=== PATIENT | female | born 1965 | race African-American/Black ===

== ENCOUNTER 2017-08-14 22:05 | Emergency (ER) | payer OTHER ==
[~2017-08-14] VITALS: Ht 167.6 cm; Wt 68.1 kg
[~2017-08-14 22:05] MED LIST: ADVAIR HF1 IN; AMOXICILLIN500 MG PO; BENADRYL 50MG C50 MG OR; BENTYL10 MG OR; BUPROPION150 MG PO; DEPO-MEDROL80 MG/ML IM; DILTIAZEM60 M1 OR; DIOVAN HC2 PO; FLEXERIL PO; GLUCOPHAGE500 MG OR; HYDROCHLOROT12.5 MG OR; HYZAAR1 TAB PO; LISINOP/HCTZ1 TA1 OR; LORTAB 5 OR; METFORMIN500 MG PO; METOPROLOL25 M1 OR; NAPROSYN500 MG OR; NAPROSYN500 MG PO; NASONEX50 MCG/AC; NORVASC10 M1 PO; NOVOLIN 70/30 SC; PREVACID30 M1 OR; PRILOSEC OTC20 MG OR; PROTONIX40 M2 PO; ULTRAM50 M1 PO; ULTRAM50 MG OR; VALSARTAN160 MG; VENTOLIN HFA IN; ZESTRIL20 MG OR; ZOFRAN ODT4 MG OR; ZOFRAN ODT8 MG SL
[2017-08-14] MEDS ORDERED: NAPROSYN500 MG PO (23:51)
--- NOTE | 2017-08-14 23:56 | NUR ---
breathing treatment given. breathing tech. for good deposition to the lungs.
[2017-08-15 00:10] VITALS: BP 148/94
== END 2017-08-15 00:12 | disposition home or self-care (01) | DRG 605 ==
LOC: ED 22:05
DX: S80.01XA Contusion of right knee, initial encounter (principal); I10 Essential (primary) hypertension; S83.91XA Sprain of unspecified site of right knee, initial encounter; E11.9 Type 2 diabetes mellitus without complications; J45.909 Unspecified asthma, uncomplicated; E03.9 Hypothyroidism, unspecified; W22.8XXA Striking against or struck by other objects, initial encounter

== ENCOUNTER 2017-09-20 14:01 | Emergency (ER) | payer OTHER ==
[~2017-09-20] VITALS: Ht 167.6 cm; Wt 69.1 kg
[2017-09-20 14:55] LABS: INFLUENZA A NONE DETECTED (NONE DETECT); INFLUENZA B NONE DETECTED (NONE DETECT)
[2017-09-20 15:28] LABS: HEMATOCRIT 34.3 % (37.0-47.0); HEMOGLOBIN 10.9 g/dl (12.0-16.0); IMMATURE GRANULOCYTES 0.4 % (0.0-1.0); MEAN CELL VOLUME 81.5 fL CALC (80.0-100.0); MEAN CORPUSCULAR HGB 25.9 pG CALC (26.0-32.0); MEAN CORPUSCULAR HGB CONC 31.8 g/L CALC (32.0-36.0); NEUT# 7.53 thou/uL (2.00-7.15); RED BLOOD COUNT 4.21 mill/uL (4.20-5.60); RED CELL DISTRI WIDTH 16.6 % (11.5-15.5)
[2017-09-20 15:34] LABS: ALBUMIN 4.3 g/dL (3.2-5.0); ALKALINE PHOSPHATASE 90 u/l (38-126); ANION GAP 13 (6-22 (CALC)); BUN 19 mg/dL (7-17); BUN/CREATININE RATIO 20 (12-20 (CALC)); CALCIUM 9.5 mg/dL (8.4-10.2); CARBON DIOXIDE 25 mmol/l (22-30); CHLORIDE 107 mmol/l (95-108); GFR 58 ML/MIN (>=60 (CALC)); GFR FOR AFR.AMER. > 60 ML/MIN (>=60 (CALC)); GLUCOSE 81 mg/dL (65-105); POTASSIUM 3.9 mmol/l (3.5-5.1); SGOT/AST 36 u/l (14-36); SGPT/ALT 31 u/l (9-52); SODIUM 142 mmol/l (137-146); TOTAL PROTEIN 7.9 g/dL (6.3-8.2)
[2017-09-20] MEDS ORDERED: ROBITUSSIN AC10 ML PO (16:44)
[2017-09-20] MEDS ORDERED: CEPHALEXIN500 MG PO (16:44)
[2017-09-20 16:47] VITALS: BP 176/84
== END 2017-09-20 17:15 | disposition home or self-care (01) | DRG 153 ==
LOC: ED 14:01
PROVIDERS: Emergency Medicine
DX: J06.9 Acute upper respiratory infection, unspecified (principal); I10 Essential (primary) hypertension; E11.9 Type 2 diabetes mellitus without complications; J45.909 Unspecified asthma, uncomplicated; E03.9 Hypothyroidism, unspecified; R05 Cough; R06.02 Shortness of breath; J02.9 Acute pharyngitis, unspecified

== ENCOUNTER 2017-10-31 00:22 | Inpatient (IN) | payer OTHER ==
[2017-10-31] VITALS (10 sets, daily range): BP systolic 138–198; BP diastolic 86–122
[~2017-10-31] VITALS: Ht 162.6 cm; Wt 60.0 kg
[~2017-10-31 00:22] MED LIST changes: +CEPHALEXIN500 MG PO; +ROBITUSSIN AC10 ML PO
[2017-10-31 01:11] LABS: HEMATOCRIT 33.7 % (37.0-47.0); HEMOGLOBIN 10.9 g/dl (12.0-16.0); IMMATURE GRANULOCYTES 0.6 % (0.0-1.0); MEAN CORPUSCULAR HGB 25.2 pG CALC (26.0-32.0); MEAN CORPUSCULAR HGB CONC 32.3 g/L CALC (32.0-36.0); NEUT# 3.79 thou/uL (2.00-7.15); RED BLOOD COUNT 4.32 mill/uL (4.20-5.60); RED CELL DISTRI WIDTH 16.8 % (11.5-15.5)
[2017-10-31 01:23] LABS: ALBUMIN 3.7 g/dL (3.2-5.0); ALKALINE PHOSPHATASE 95 u/l (38-126); ANION GAP 15 (6-22 (CALC)); BILIRUBIN, TOTAL 0.6 mg/dL (0.0-1.4); BUN 17 mg/dL (7-17); BUN/CREATININE RATIO 14 (12-20 (CALC)); CALCIUM 9.4 mg/dL (8.4-10.2); CARBON DIOXIDE 25 mmol/l (22-30); CHLORIDE 110 mmol/l (95-108); CREATININE 1.2 mg/dL (0.5-1.0); GFR 47 ML/MIN (>=60 (CALC)); GFR FOR AFR.AMER. 57 ML/MIN (>=60 (CALC)); GLUCOSE 114 mg/dL (65-105); POTASSIUM 4.2 mmol/l (3.5-5.1); SGOT/AST 47 u/l (14-36); SGPT/ALT 45 u/l (9-52); SODIUM 145 mmol/l (137-146); TOTAL PROTEIN 6.6 g/dL (6.3-8.2)
[2017-10-31 01:31] LABS: ACT PARTIAL THROMBO TIME 27.1 SECONDS (20.0-32.5); PROTHROMBIN TIME 11.5 SECONDS (9.0-12.5)
[2017-10-31 01:35] LABS: MYOGLOBIN 23 ng/mL (0 - 62)
[2017-10-31 02:14] LABS: URINE BILIRUBIN - DIPSTICK NEGATIVE (NEGATIVE); URINE BLOOD DIPSTICK NEGATIVE (NEGATIVE); URINE CLARITY CLEAR; URINE COLOR YELLOW; URINE GLUCOSE - DIPSTICK NEGATIVE (NEGATIVE); URINE KETONE NEGATIVE (NEGATIVE); URINE LEUK ESTERASE NEGATIVE (NEGATIVE); URINE NITRITE - DIPSTICK NEGATIVE (Negative); URINE PH 6.5 (4.5-8.0); URINE PROTEIN - DIPSTICK NEGATIVE (NEG-TRACE); URINE SPECIFIC GRAVITY <=1.005; URINE UROBILINOGEN - DIPSTICK 0.2 E.U./dL (0.2)
[2017-10-31 05:50] LABS: CHOLESTEROL HDL RATIO 2.6 (<4.4 (CALC))
[2017-10-31 13:11] LABS: BARBITURATES NEGATIVE (NEGATIVE); COCAINE POSITIVE (NEGATIVE); METHADONE NEGATIVE (NEGATIVE); OXCYCODONE NEGATIVE (NEGATIVE); TETRAHYDROCANNABIONOL POSITIVE (NEGATIVE); TRICYLIC ANTIDEPRESSANTS NEGATIVE (NEGATIVE)
[2017-11-01 05:00] VITALS: BP 174/110
[2017-11-01 05:15] LABS: ANION GAP 14 (6-22 (CALC)); BUN 12 mg/dL (7-17); BUN/CREATININE RATIO 10 (12-20 (CALC)); CALCIUM 9.6 mg/dL (8.4-10.2); CARBON DIOXIDE 23 mmol/l (22-30); CHLORIDE 108 mmol/l (95-108); CREATININE 1.1 mg/dL (0.5-1.0); GFR 52 ML/MIN (>=60 (CALC)); GFR FOR AFR.AMER. > 60 ML/MIN (>=60 (CALC)); GLUCOSE 114 mg/dL (65-105); MAGNESIUM 1.7 mg/dL (1.6-2.3); POTASSIUM 3.6 mmol/l (3.5-5.1); SODIUM 141 mmol/l (137-146)
[2017-11-01 07:10] VITALS: BP 150/88
[2017-11-01 11:10] VITALS: BP 143/82
[2017-11-01 16:34] VITALS: BP 146/78
[2017-11-02 00:05] VITALS: BP 160/90
[2017-11-02 05:20] LABS: HEMATOCRIT 34.6 % (37.0-47.0); HEMOGLOBIN 11.4 g/dl (12.0-16.0); IMMATURE GRANULOCYTES 0.5 % (0.0-1.0); MEAN CELL VOLUME 75.5 fL CALC (80.0-100.0); MEAN CORPUSCULAR HGB 24.9 pG CALC (26.0-32.0); MEAN CORPUSCULAR HGB CONC 32.9 g/L CALC (32.0-36.0); NEUT# 7.79 thou/uL (2.00-7.15); RED BLOOD COUNT 4.58 mill/uL (4.20-5.60); RED CELL DISTRI WIDTH 16.3 % (11.5-15.5)
[2017-11-02 05:37] LABS: ANION GAP 20 (6-22 (CALC)); BUN 11 mg/dL (7-17); BUN/CREATININE RATIO 10 (12-20 (CALC)); CALCIUM 9.7 mg/dL (8.4-10.2); CARBON DIOXIDE 23 mmol/l (22-30); CHLORIDE 102 mmol/l (95-108); CREATININE 1.1 mg/dL (0.5-1.0); GFR 52 ML/MIN (>=60 (CALC)); GFR FOR AFR.AMER. > 60 ML/MIN (>=60 (CALC)); GLUCOSE 162 mg/dL (65-105); MAGNESIUM 1.5 mg/dL (1.6-2.3); POTASSIUM 3.9 mmol/l (3.5-5.1); SODIUM 141 mmol/l (137-146)
[2017-11-02 05:45] VITALS: BP 114/67
[2017-11-02 07:37] VITALS: BP 140/86
[2017-11-02 11:21] VITALS: BP 126/76
[2017-11-02 15:37] VITALS: BP 123/74
[2017-11-02 19:00] VITALS: BP 142/84
[2017-11-03 00:16] VITALS: BP 130/67
[2017-11-03 04:00] VITALS: BP 138/98
[2017-11-03 06:18] LABS: HEMATOCRIT 37.4 % (37.0-47.0); IMMATURE GRANULOCYTES 0.5 % (0.0-1.0); MEAN CELL VOLUME 76.3 fL CALC (80.0-100.0); MEAN CORPUSCULAR HGB 24.5 pG CALC (26.0-32.0); MEAN CORPUSCULAR HGB CONC 32.1 g/L CALC (32.0-36.0); RED BLOOD COUNT 4.9 mill/uL (4.20-5.60); RED CELL DISTRI WIDTH 16.4 % (11.5-15.5)
[2017-11-03 06:31] LABS: CALCIUM 10.2 mg/dL (8.4-10.2); CREATININE 1.2 mg/dL (0.5-1.0); MAGNESIUM 2.1 mg/dL (1.6-2.3); POTASSIUM 4.5 mmol/l (3.5-5.1)
[2017-11-03] MEDS ORDERED: ISOSORB MONO60 M1 PO (08:17)
[2017-11-03] MEDS ORDERED: DILTIAZEM CD300 MG PO (08:17)
[2017-11-03] MEDS ORDERED: CARAFATE1 GM PO (08:18)
[2017-11-03] MEDS ORDERED: ALDACTONE25 MG PO (08:18)
[2017-11-03] MEDS ORDERED: ELIQUIS5 MG PO (08:19)
[2017-11-03] MEDS ORDERED: GLUCOPHAGE500 MG PO (08:19)
[2017-11-03] MEDS ORDERED: FERROUS SULF325 M2 PO (08:22)
[2017-11-03] MEDS ORDERED: AUGMENTIN875TAB PO (08:30)
[2017-11-03 08:50] VITALS: BP 151/82
[2017-11-03 08:59] VITALS: BP 151/82
== END 2017-11-03 11:00 | disposition home or self-care (01) | DRG 308 ==
LOC: ED 00:22 → ED-I 04:10 → ED 04:26 → MS2 04:27
PROVIDERS: Emergency Medicine; Nurse Practitioner Family; ADMIT Internal Medicine; ATTEND Internal Medicine
DX: I48.91 Unspecified atrial fibrillation (principal); J18.9 Pneumonia, unspecified organism; D50.9 Iron deficiency anemia, unspecified; E03.9 Hypothyroidism, unspecified; E11.9 Type 2 diabetes mellitus without complications; E86.0 Dehydration; I10 Essential (primary) hypertension; F12.10 Cannabis abuse, uncomplicated; K27.9 Peptic ulcer, site unspecified, unspecified as acute or chronic, without hemorrhage or perforation; J45.909 Unspecified asthma, uncomplicated; M15.9 Polyosteoarthritis, unspecified; F14.10 Cocaine abuse, uncomplicated; I48.92 Unspecified atrial flutter; J32.9 Chronic sinusitis, unspecified; T39.395A Adverse effect of other nonsteroidal anti-inflammatory drugs [NSAID], initial encounter; Z79.84 Long term (current) use of oral hypoglycemic drugs
CPT/HCPCS: J1650; S0164

== ENCOUNTER 2018-01-05 01:25 | Emergency (ER) | payer OTHER ==
[~2018-01-05] VITALS: Ht 162.6 cm; Wt 66.8 kg
[~2018-01-05 01:25] MED LIST changes: +ALDACTONE25 MG PO; +AUGMENTIN875TAB PO; +CARAFATE1 GM PO; +DILTIAZEM CD300 MG PO; +ELIQUIS5 MG PO; +FERROUS SULF325 M2 PO; +GLUCOPHAGE500 MG PO; +ISOSORB MONO60 M1 PO
[2018-01-05 02:33] LABS: HEMATOCRIT 35.6 % (37.0-47.0); HEMOGLOBIN 11.2 g/dl (12.0-16.0); IMMATURE GRANULOCYTES 0.3 % (0.0-1.0); MEAN CELL VOLUME 76.1 fL CALC (80.0-100.0); MEAN CORPUSCULAR HGB 23.9 pG CALC (26.0-32.0); MEAN CORPUSCULAR HGB CONC 31.5 g/L CALC (32.0-36.0); NEUT# 3.51 thou/uL (2.00-7.15); RED BLOOD COUNT 4.68 mill/uL (4.20-5.60); RED CELL DISTRI WIDTH 19.6 % (11.5-15.5)
[2018-01-05 02:53] LABS: ALBUMIN 4.1 g/dL (3.2-5.0); BILIRUBIN, TOTAL 0.5 mg/dL (0.0-1.4); CREATININE 1.3 mg/dL (0.5-1.0); POTASSIUM 3.9 mmol/l (3.5-5.1)
[2018-01-05 02:54] LABS: INFLUENZA A NONE DETECTED (NONE DETECT); INFLUENZA B NONE DETECTED (NONE DETECT)
[2018-01-05] MEDS ORDERED: MEDDOSEPAK PO (02:58)
[2018-01-05] MEDS ORDERED: ROBITUSSIN AC10 ML PO (02:58)
[2018-01-05] MEDS ORDERED: CEPHALEXIN500 MG PO (02:58)
[2018-01-05 03:19] VITALS: BP 148/95
== END 2018-01-05 03:32 | disposition home or self-care (01) | DRG 203 ==
LOC: ED 01:25
PROVIDERS: Emergency Medicine
DX: J45.909 Unspecified asthma, uncomplicated (principal); I12.9 Hypertensive chronic kidney disease with stage 1 through stage 4 chronic kidney disease, or unspecified chronic kidney disease; N18.9 Chronic kidney disease, unspecified; I25.10 Atherosclerotic heart disease of native coronary artery without angina pectoris; R05 Cough; R50.9 Fever, unspecified; J02.9 Acute pharyngitis, unspecified

== ENCOUNTER 2018-01-06 01:08 | Inpatient (IN) | payer OTHER ==
[~2018-01-06] VITALS: Ht 162.6 cm; Wt 57.8 kg
[2018-01-06] VITALS (16 sets, daily range): BP systolic 131–184; BP diastolic 76–110
[~2018-01-06 01:08] MED LIST changes: +MEDDOSEPAK PO
--- NOTE | 2018-01-06 01:08 | NUR ---
RECEIVED PT VIA EMS.
--- NOTE | 2018-01-06 01:30 | NUR ---
PATIENT MEDICATED FOR NAUSEA AND ELEVATED HR AND BP. WILL MONITRO FOR EFFECT.
[2018-01-06 01:36] LABS: HEMATOCRIT 36.9 % (37.0-47.0); HEMOGLOBIN 11.7 g/dl (12.0-16.0); IMMATURE GRANULOCYTES 0.6 % (0.0-1.0); MEAN CELL VOLUME 75.2 fL CALC (80.0-100.0); MEAN CORPUSCULAR HGB 23.8 pG CALC (26.0-32.0); MEAN CORPUSCULAR HGB CONC 31.7 g/L CALC (32.0-36.0); NEUT# 7.21 thou/uL (2.00-7.15); RED BLOOD COUNT 4.91 mill/uL (4.20-5.60); RED CELL DISTRI WIDTH 19.9 % (11.5-15.5)
--- NOTE | 2018-01-06 01:41 | NUR ---
PATIENT UP TO BEDSIDE COMMODE FOR URINE SAMPLE.
[2018-01-06 01:51] LABS: ALBUMIN 4.7 g/dL (3.2-5.0); ALKALINE PHOSPHATASE 121 u/l (38-126); ANION GAP 17 (6-22 (CALC)); BILIRUBIN, TOTAL 0.9 mg/dL (0.0-1.4); BUN 14 mg/dL (7-17); BUN/CREATININE RATIO 14 (12-20 (CALC)); CARBON DIOXIDE 24 mmol/l (22-30); CHLORIDE 110 mmol/l (95-108); GFR 58 ML/MIN (>=60 (CALC)); GFR FOR AFR.AMER. > 60 ML/MIN (>=60 (CALC)); POTASSIUM 3.7 mmol/l (3.5-5.1); SGOT/AST 85 u/l (14-36); SGPT/ALT 80 u/l (9-52); SODIUM 147 mmol/l (137-146); TOTAL PROTEIN 7.8 g/dL (6.3-8.2)
[2018-01-06 02:01] LABS: URINE BILIRUBIN - DIPSTICK NEGATIVE (NEGATIVE); URINE BLOOD DIPSTICK TRACE-LYSED (NEGATIVE); URINE COLOR YELLOW; URINE GLUCOSE - DIPSTICK 100 mg/dL (NEGATIVE); URINE KETONE NEGATIVE (NEGATIVE); URINE LEUK ESTERASE NEGATIVE (NEGATIVE); URINE NITRITE - DIPSTICK NEGATIVE (Negative); URINE PH 6.5 (4.5-8.0); URINE PROTEIN - DIPSTICK NEGATIVE (NEG-TRACE); URINE UROBILINOGEN - DIPSTICK 0.2 E.U./dL (0.2)
[2018-01-06 02:02] LABS: MYOGLOBIN 54 ng/mL (0 - 62)
[2018-01-06 02:04] LABS: URINE CLARITY CLEAR
--- NOTE | 2018-01-06 02:30 | NUR ---
UP TO COMMODE TO VOID. TOLERATED WELL WITHOUT DIZZINESS OR LIGHTHEADEDNESS. O2 APPLIED PER MD ORDER. ANTIBIOTIC INFUSING.
--- NOTE | 2018-01-06 02:42 | NUR ---
BREATHING TREATMENT GIVEN. BREATHING TECH. FOR GOOD DEPOSITION TO THE LUNGS AND IN CASE OF SOB.
--- NOTE | 2018-01-06 03:15 | NUR ---
PATIENT RESTING ON STRETCHER. AWARE OF PLANS TO ADMIT. AWAITING ORDERS AND PLAN OF CARE.
--- NOTE | 2018-01-06 04:13 | NUR ---
REPORT CALLED TO Dequan FAJARDO LPN
--- NOTE | 2018-01-06 04:25 | NUR ---
TRANSFERRED TO ICU ROOM 7 VIA STRETCHER WITH CONTINUOUS MONITORING AND OXYGEN AT 2 L/MIN. ALL BELONGINGS WITH PATIENT, INCLUDING KEYS AND CELL PHONE.
--- NOTE | 2018-01-06 07:05 | NUR ---
PT LAYING IN BED RESTING WITH EYES CLOSED, AROUSES EASILY TO VERBAL STIMULI, PT IS A & O X3, PERRL, HR 112, RESP. 20, BP 133/75, O2 97% ON RA, WHEEZES AND COARSE THROUGHOUT LUNGS, 20G RFA WITH NS AND CARDIZEM INFUSING AT PRESCRIBED RATE, STRONG RADIAL AND PEDAL PULSES, AM ASSESSMENT COMPLETE, SEE INTERVENTIONS, SAFETY MEASURES INFORCED, CALL CESAR WITHIN REACH
--- NOTE | 2018-01-06 07:35 | NUR ---
SETUP ASSISTANCE PROVIDE WITH AM MEAL
--- NOTE | 2018-01-06 08:05 | NUR ---
PT ASSISTED WITH MINIMAL ASSISTANCE TO THE BSC AND BACK TO BED, PT AMBULATED WITH A SLOW STEADY GAIT, CALL CESAR WITHIN REACH
--- NOTE | 2018-01-06 08:35 | NUR ---
PT LAYING IN BED WATCHING TV, VERBALIZES NO COMPLAINTS, REMINDED TO CALL FOR ASSISTANCE, CALL CESAR WITHIN REACH
--- NOTE | 2018-01-06 09:47 | NUR ---
DR CHANG AT BEDSIDE DISCUSSING PLAN OF CARE
--- NOTE | 2018-01-06 10:26 | NUR ---
PT PROVIDED WITH SNACKS PER PT REQUEST, PT SITTING UP IN BED WATCHING TV, NO S/S OF DISTRESS, CALL CESAR WITHIN REACH
--- NOTE | 2018-01-06 11:30 | NUR ---
SETUP ASSISTANCE PROVIDED WITH LUNCH
--- NOTE | 2018-01-06 12:05 | NUR ---
PT SITTING UP IN BED WATCHING TV, VERBALIZES NO COMPLAINTS, REMINDED TO CALL FOR ASSISTANCE, CALL CESAR WITHIN REACH
--- NOTE | 2018-01-06 13:10 | NUR ---
PT ASSISTED TO THE BSC AND BACK TO BED, PT AMBULATED WITH A STRONG STEADY GAIT, PT TOLERATED WELL, CALL CESAR WITHIN REACH
--- NOTE | 2018-01-06 14:38 | NUR ---
PT SITTING IN BED TALKING ON THE PHONE, NO S/S OF DISTRESS, REMINDED TO CALL FOR ASSISTANCE, CALL CESAR WITHIN REACH
--- NOTE | 2018-01-06 15:26 | NUR ---
CASE MANAGEMENT AT BEDSIDE DISCUSSING DISCHARGE PLANNING
--- NOTE | 2018-01-06 16:05 | NUR ---
PT LAYING IN BED WATCHING TV, PT VERBALIZES NO COMPLAINTS, CARDIZEM DRIP TITRATED, WILL CONTINUE TO MONITOR CLOSELY, CALL CESAR WITHIN REACH
--- NOTE | 2018-01-06 17:35 | NUR ---
SETUP ASSISTANCE PROVIDED WITH PM MEAL
--- NOTE | 2018-01-06 19:00 | NUR ---
awake. denies resp diff. o2 cont per nc. coarse breath sounds bilat. monitoring engineer shows afib/fl. po fluids taken well. voids per bsc. fall precautions cont.
--- NOTE | 2018-01-06 22:00 | NUR ---
eyes closed. no resp distress. o2 cont. management rep shows afib/fl.
[2018-01-07] VITALS (11 sets, daily range): BP systolic 119–160; BP diastolic 67–110
--- NOTE | 2018-01-07 00:01 | NUR ---
eyes closed. no apparent distress. o2 cont.
--- NOTE | 2018-01-07 00:15 | NUR ---
lab here. blood drawn.
--- NOTE | 2018-01-07 02:00 | NUR ---
resting quietly. resps even & unlabored. no apparent distress.
--- NOTE | 2018-01-07 04:00 | NUR ---
lab here. blood drawn.
[2018-01-07 05:00] LABS: ANION GAP 17 (6-22 (CALC)); BUN 17 mg/dL (7-17); BUN/CREATININE RATIO 17 (12-20 (CALC)); CARBON DIOXIDE 27 mmol/l (22-30); CHLORIDE 103 mmol/l (95-108); GFR 58 ML/MIN (>=60 (CALC)); GFR FOR AFR.AMER. > 60 ML/MIN (>=60 (CALC)); POTASSIUM 3.9 mmol/l (3.5-5.1); SODIUM 143 mmol/l (137-146)
--- NOTE | 2018-01-07 06:00 | NUR ---
awakened easily. stood to weigh. madhu well.
--- NOTE | 2018-01-07 08:18 | NUR ---
PT SEEN AWAKE, ALERT, ORIENTED X 3. LUNGS ARE DIMINISHED WITH CRACKLES IN THE BASES, 2 LPM. LOOSE COUGH HEARD. PT STATES THAT SHE USES A CANE AT HOME, IS A FALL RISK, ENCOURAGED TO CALL FOR ASSIST. MEAL CONSUMED 100%. NO DISTRESS, NO COMPLAINTS AT THIS TIME.
--- NOTE | 2018-01-07 12:03 | NUR ---
PT CONTINUES BEFORE, COUGH HEARD ON OCCASION, IS ABLE TO GET TO BSC AND BACK SAFELY. PT WAS SET UP FOR BATH AND DID BATHE HERSELF THIS AM. RESP TX PROVIDED REGULARLY NOW PER COUGH.
--- NOTE | 2018-01-07 16:17 | NUR ---
PT WAS SEEN BY DR HARTMANN EARLIER THIS AFTERNOON. MED PROVIDED FOR COUGH. NO REPORT OF PAIN. HR 70s AT THIS TIME, AFIB/FLUTTER.
--- NOTE | 2018-01-07 19:00 | NUR ---
awake. denies resp diff. o2 comt per nc. cardiac rehab nurse shows a fib. #20 rfa saline lock. po fluids taken well. voids per bsc. snack given per request. fall precautions cont.
--- NOTE | 2018-01-07 20:20 | NUR ---
awake. c/o rt lateral rib pain. is quite dramatic. rates pain as 10. pain does not appear 10. tylenol 650mg po given.
[2018-01-08 00:01] VITALS: BP 131/82
--- NOTE | 2018-01-08 00:01 | NUR ---
eyes closed. no distress. manager monitoring shows a fib.
[2018-01-08 02:00] VITALS: BP 136/85
--- NOTE | 2018-01-08 02:00 | NUR ---
resting quietly. resps even & unlabored. no apparent distress.
[2018-01-08 04:00] VITALS: BP 140/80
--- NOTE | 2018-01-08 04:00 | NUR ---
eyes closed. no distress. o2 cont.
[2018-01-08 06:00] VITALS: BP 143/98
--- NOTE | 2018-01-08 06:00 | NUR ---
no acute change in condition. monitoring engineer shows a fib.
--- NOTE | 2018-01-08 07:32 | NUR ---
PT SEEN AWAKE, ALERT, ORIENTED. LUNGS STILL WITH CRACKLES IN BASES, DECREASED UPPER LOBES, USING 1 LPM, SATS 100%. PT STATES LEFT LATERAL CHEST PAIN WITH COUGH. NO DISTRESS NOTED. OCCASIONAL COUGH.
[2018-01-08 08:00] VITALS: BP 152/109; BP 155/92
[2018-01-08] MEDS ORDERED: LOPRESSOR25 MG PO (08:41)
[2018-01-08 09:01] VITALS: BP 143/98
--- NOTE | 2018-01-08 10:24 | NUR ---
PT AWARE OF PENDING TRANSFER TO [facility]. [facility] WILL CALL WITH ROOM ASSIGNMENT. PT HERSELF NO CHANGE IN STATUS, STABLE BEFORE.
--- NOTE | 2018-01-08 11:51 | NUR ---
[facility] transport called; spoke with Toribio; info provided; ETA 45 minutes
--- NOTE | 2018-01-08 12:24 | NUR ---
PT AWARE OF WAIT TIME, NOW OVER 2 HOURS AWAY. NO CHANGE IN STATUS, NO COUGH HEARD FROM ROOM.
--- NOTE | 2018-01-08 13:05 | NUR ---
Stephany Gan (pt placement) notified in delay for transfer due to transport;
--- NOTE | 2018-01-08 15:50 | NUR ---
PT LEAVES FOR [facility] AT THIS TIME, NO CHANGE IN STATUS. REPORT WAS PROVIDED TO [place]. PTE WENT TO [id number].
== END 2018-01-08 15:50 | disposition short-term general hospital (02) | DRG 308 ==
LOC: ED 01:08 → ED-I 02:00 → ED 03:23 → ICU 03:24
PROVIDERS: Emergency Medicine; ADMIT Internal Medicine; ATTEND Internal Medicine
PROC: 3E0234Z Introduction of Serum, Toxoid and Vaccine into Muscle, Percutaneous Approach (ICD-10-PCS; principal; 2018-01-07)
DX: I48.91 Unspecified atrial fibrillation (principal); J96.01 Acute respiratory failure with hypoxia; D50.9 Iron deficiency anemia, unspecified; I10 Essential (primary) hypertension; E11.9 Type 2 diabetes mellitus without complications; F12.90 Cannabis use, unspecified, uncomplicated; I34.0 Nonrheumatic mitral (valve) insufficiency; J20.9 Acute bronchitis, unspecified; I25.10 Atherosclerotic heart disease of native coronary artery without angina pectoris; M15.9 Polyosteoarthritis, unspecified; Z79.01 Long term (current) use of anticoagulants; Z91.14 Patient's other noncompliance with medication regimen; Z23 Encounter for immunization

== ENCOUNTER 2018-10-29 10:11 | Emergency (ER) | payer OTHER ==
[~2018-10-29] VITALS: Ht 162.6 cm; Wt 50.0 kg
[~2018-10-29 10:11] MED LIST changes: +LOPRESSOR25 MG PO
[2018-10-29 11:58] LABS: ALBUMIN 4.6 g/dL (3.2-5.0); ALKALINE PHOSPHATASE 92 u/l (38-126); ANION GAP 16 (6-22 (CALC)); BUN 12 mg/dL (7-17); BUN/CREATININE RATIO 11 (12-20 (CALC)); CARBON DIOXIDE 23 mmol/l (22-30); CHLORIDE 102 mmol/l (95-108); CREATININE 1.1 mg/dL (0.5-1.0); GFR 52 ML/MIN (>=60 (CALC)); GFR FOR AFR.AMER. > 60 ML/MIN (>=60 (CALC)); POTASSIUM 3.8 mmol/l (3.5-5.1); SGOT/AST 27 u/l (14-36); SODIUM 137 mmol/l (137-146); TOTAL PROTEIN 8.4 g/dL (6.3-8.2)
[2018-10-29 12:05] LABS: HEMATOCRIT 41.2 % (37.0-47.0); HEMOGLOBIN 13.5 g/dl (12.0-16.0); IMMATURE GRANULOCYTES 0.4 % (0.0-5.0); MEAN CORPUSCULAR HGB 26.5 pG CALC (26.0-32.0); MEAN CORPUSCULAR HGB CONC 32.8 g/L CALC (32.0-36.0); NEUT# 3.28 thou/uL (2.00-7.15); RED BLOOD COUNT 5.1 mill/uL (4.20-5.60); RED CELL DISTRI WIDTH 15.7 % (11.5-15.5)
[2018-10-29 12:06] LABS: MEAN CELL VOLUME 80.8 fL CALC (80.0-100.0)
[2018-10-29 12:09] LABS: MYOGLOBIN 97 ng/mL (0 - 62)
[2018-10-29 12:43] LABS: URINE BILIRUBIN - DIPSTICK NEGATIVE (NEGATIVE); URINE BLOOD DIPSTICK MODERATE (NEGATIVE); URINE COLOR YELLOW; URINE GLUCOSE - DIPSTICK 100 mg/dL (NEGATIVE); URINE KETONE NEGATIVE (NEGATIVE); URINE LEUK ESTERASE NEGATIVE (NEGATIVE); URINE NITRITE - DIPSTICK NEGATIVE (Negative); URINE PROTEIN - DIPSTICK 30 mg/dL (NEG-TRACE); URINE UROBILINOGEN - DIPSTICK 0.2 E.U./dL (0.2)
[2018-10-29 12:53] LABS: BARBITURATES NEGATIVE (NEGATIVE); COCAINE NEGATIVE (NEGATIVE); METHADONE NEGATIVE (NEGATIVE); OXCYCODONE NEGATIVE (NEGATIVE); TETRAHYDROCANNABIONOL NEGATIVE (NEGATIVE); TRICYLIC ANTIDEPRESSANTS NEGATIVE (NEGATIVE); URINE SQUAMOUS EPITHELIAL CELL FEW EPI/hpf (0-FEW)
[2018-10-29] MEDS ORDERED: TAM75CAP PO ×2 (13:02→15:27)
[2018-10-29] MEDS ORDERED: AMOXICILLIN/PO500 MG PO ×2 (13:02→15:27)
[2018-10-29] MEDS ORDERED: ROBITUSSIN AC10 ML PO (13:03)
[2018-10-29 13:11] VITALS: BP 159/104
== END 2018-10-29 13:11 | disposition left against medical advice (07) ==
LOC: ED 10:11
PROVIDERS: Emergency Medicine
DX: J10.1 Influenza due to other identified influenza virus with other respiratory manifestations (principal); J02.0 Streptococcal pharyngitis; J06.9 Acute upper respiratory infection, unspecified; R50.9 Fever, unspecified; R11.2 Nausea with vomiting, unspecified; R53.1 Weakness; Z91.19 Patient's noncompliance with other medical treatment and regimen

== ENCOUNTER 2018-10-29 20:38 | Inpatient (IN) | payer OTHER ==
[~2018-10-29] VITALS: Ht 162.6 cm; Wt 61.1 kg
[~2018-10-29 20:38] MED LIST changes: +AMOXICILLIN/PO500 MG PO; +TAM75CAP PO
[2018-10-29 21:14] LABS: HEMATOCRIT 42.1 % (37.0-47.0); HEMOGLOBIN 13.8 g/dl (12.0-16.0); IMMATURE GRANULOCYTES 0.4 % (0.0-5.0); MEAN CORPUSCULAR HGB 26.2 pG CALC (26.0-32.0); MEAN CORPUSCULAR HGB CONC 32.8 g/L CALC (32.0-36.0); NEUT# 2.97 thou/uL (2.00-7.15); RED BLOOD COUNT 5.26 mill/uL (4.20-5.60); RED CELL DISTRI WIDTH 15.5 % (11.5-15.5)
[2018-10-29 21:28] LABS: ALBUMIN 4.5 g/dL (3.2-5.0); ALKALINE PHOSPHATASE 88 u/l (38-126); ANION GAP 16 (6-22 (CALC)); BILIRUBIN, TOTAL 0.9 mg/dL (0.0-1.4); BUN 13 mg/dL (7-17); BUN/CREATININE RATIO 12 (12-20 (CALC)); CARBON DIOXIDE 22 mmol/l (22-30); CHLORIDE 103 mmol/l (95-108); CREATININE 1.1 mg/dL (0.5-1.0); GFR 52 ML/MIN (>=60 (CALC)); GFR FOR AFR.AMER. > 60 ML/MIN (>=60 (CALC)); POTASSIUM 3.9 mmol/l (3.5-5.1); SGOT/AST 30 u/l (14-36); SODIUM 137 mmol/l (137-146)
[2018-10-29 21:32] LABS: ACT PARTIAL THROMBO TIME 31.4 SECONDS (20.0-32.5); INTERNATIONAL NORMALIZED RATIO 1.1 RATIO (0.7-1.3); PROTHROMBIN TIME 11.6 SECONDS (9.0-12.5)
[2018-10-29 21:40] LABS: MYOGLOBIN 108 ng/mL (0 - 62)
[2018-10-29 23:20] VITALS: BP 153/110
[2018-10-29 23:45] VITALS: BP 172/92
[2018-10-29 23:59] LABS: URINE BILIRUBIN - DIPSTICK NEGATIVE (NEGATIVE); URINE BLOOD DIPSTICK SMALL (NEGATIVE); URINE COLOR YELLOW; URINE GLUCOSE - DIPSTICK 100 mg/dL (NEGATIVE); URINE KETONE NEGATIVE (NEGATIVE); URINE LEUK ESTERASE NEGATIVE (NEGATIVE); URINE NITRITE - DIPSTICK NEGATIVE (Negative); URINE PH 6.5 (4.5-8.0); URINE PROTEIN - DIPSTICK 30 mg/dL (NEG-TRACE); URINE UROBILINOGEN - DIPSTICK 0.2 E.U./dL (0.2)
[2018-10-30] VITALS (28 sets, daily range): BP systolic 101–166; BP diastolic 58–112
[2018-10-30 00:29] LABS: URINE SQUAMOUS EPITHELIAL CELL FEW EPI/hpf (0-FEW); URINE WBC 0-2 WBC/hpf (0-5)
[2018-10-30 06:30] LABS: HEMATOCRIT 42.5 % (37.0-47.0); HEMOGLOBIN 13.6 g/dl (12.0-16.0); IMMATURE GRANULOCYTES 0.6 % (0.0-5.0); MEAN CELL VOLUME 81.7 fL CALC (80.0-100.0); MEAN CORPUSCULAR HGB 26.2 pG CALC (26.0-32.0); NEUT# 2.43 thou/uL (2.00-7.15); RED BLOOD COUNT 5.2 mill/uL (4.20-5.60); RED CELL DISTRI WIDTH 15.7 % (11.5-15.5)
[2018-10-30 06:47] LABS: CREATININE 1.2 mg/dL (0.5-1.0); MAGNESIUM 1.9 mg/dL (1.6-2.3); POTASSIUM 4.2 mmol/l (3.5-5.1)
[2018-10-31 00:29] VITALS: BP 117/65
[2018-10-31 04:00] VITALS: BP 150/93
[2018-10-31 07:36] VITALS: BP 144/97
[2018-10-31 15:30] VITALS: BP 168/81
[2018-10-31 19:00] VITALS: BP 133/89
[2018-10-31 23:45] VITALS: BP 130/83
[2018-11-01 04:05] VITALS: BP 120/75
[2018-11-01 05:20] LABS: HEMATOCRIT 38.1 % (37.0-47.0); HEMOGLOBIN 12.4 g/dl (12.0-16.0); IMMATURE GRANULOCYTES 0.7 % (0.0-5.0); MEAN CELL VOLUME 80.4 fL CALC (80.0-100.0); MEAN CORPUSCULAR HGB 26.2 pG CALC (26.0-32.0); MEAN CORPUSCULAR HGB CONC 32.5 g/L CALC (32.0-36.0); RED BLOOD COUNT 4.74 mill/uL (4.20-5.60); RED CELL DISTRI WIDTH 15.5 % (11.5-15.5)
[2018-11-01 05:34] LABS: ALKALINE PHOSPHATASE 63 u/l (38-126); ANION GAP 12 (6-22 (CALC)); BILIRUBIN, TOTAL 0.7 mg/dL (0.0-1.4); BUN 10 mg/dL (7-17); BUN/CREATININE RATIO 9 (12-20 (CALC)); CARBON DIOXIDE 22 mmol/l (22-30); CHLORIDE 110 mmol/l (95-108); CREATININE 1.1 mg/dL (0.5-1.0); GFR 52 ML/MIN (>=60 (CALC)); GFR FOR AFR.AMER. > 60 ML/MIN (>=60 (CALC)); MAGNESIUM 1.7 mg/dL (1.6-2.3); POTASSIUM 3.9 mmol/l (3.5-5.1); SGOT/AST 25 u/l (14-36); SODIUM 140 mmol/l (137-146); TOTAL PROTEIN 6.6 g/dL (6.3-8.2)
[2018-11-01 05:50] LABS: ALBUMIN 3.5 g/dL (3.2-5.0)
[2018-11-01 06:41] LABS: BAND 1 % (0-8); MANUAL DIFFERENTIAL YES; PLATELET COUNT 154 thou/uL (130-400)
[2018-11-01 06:42] LABS: HYPOCHROMIA FEW; IMMATURE CELLS 3 %; MICROCYTOSIS FEW
[2018-11-01 06:43] LABS: OVALOCYTES RARE
[2018-11-01 12:00] VITALS: BP 134/70
[2018-11-01 15:20] VITALS: BP 135/85
[2018-11-01 19:20] VITALS: BP 123/70
[2018-11-02 00:06] VITALS: BP 150/87
[2018-11-02 04:20] VITALS: BP 147/76
[2018-11-02 05:13] LABS: HEMATOCRIT 38.4 % (37.0-47.0); HEMOGLOBIN 12.3 g/dl (12.0-16.0); IMMATURE GRANULOCYTES 0.7 % (0.0-5.0); MEAN CELL VOLUME 80.2 fL CALC (80.0-100.0); MEAN CORPUSCULAR HGB 25.7 pG CALC (26.0-32.0); RED BLOOD COUNT 4.79 mill/uL (4.20-5.60); RED CELL DISTRI WIDTH 15.4 % (11.5-15.5)
[2018-11-02 05:40] LABS: ALBUMIN 3.8 g/dL (3.2-5.0); ALKALINE PHOSPHATASE 65 u/l (38-126); ANION GAP 13 (6-22 (CALC)); BILIRUBIN, TOTAL 0.7 mg/dL (0.0-1.4); BUN 9 mg/dL (7-17); BUN/CREATININE RATIO 9 (12-20 (CALC)); CARBON DIOXIDE 22 mmol/l (22-30); CHLORIDE 109 mmol/l (95-108); GFR 58 ML/MIN (>=60 (CALC)); GFR FOR AFR.AMER. > 60 ML/MIN (>=60 (CALC)); MAGNESIUM 1.6 mg/dL (1.6-2.3); POTASSIUM 3.9 mmol/l (3.5-5.1); SGOT/AST 24 u/l (14-36); SODIUM 140 mmol/l (137-146); TOTAL PROTEIN 7.1 g/dL (6.3-8.2)
[2018-11-02 06:46] LABS: BAND 1 % (0-8); IMMATURE CELLS 1 %; MANUAL DIFFERENTIAL YES
[2018-11-02 06:47] LABS: PLATELET COUNT 162 thou/uL (130-400); PLATELET ESTIMATE NORMAL
[2018-11-02 06:48] LABS: HYPOCHROMIA FEW; MICROCYTOSIS FEW; OVALOCYTES RARE
[2018-11-02 08:56] VITALS: BP 151/97
[2018-11-02 11:58] VITALS: BP 147/85
[2018-11-02] MEDS ORDERED: DOXYCYCL HYC100 MG PO (15:37)
== END 2018-11-02 16:21 | disposition home or self-care (01) | DRG 194 ==
LOC: ED 20:38 → ED-I 22:01 → ED 22:19 → ICU 22:20 → MS2 22:20
PROVIDERS: Emergency Medicine; Internal Medicine Nephrology; ADMIT Internal Medicine; ATTEND Internal Medicine
DX: J10.00 Influenza due to other identified influenza virus with unspecified type of pneumonia (principal); J44.0 Chronic obstructive pulmonary disease with (acute) lower respiratory infection; J18.9 Pneumonia, unspecified organism; E11.22 Type 2 diabetes mellitus with diabetic chronic kidney disease; I12.9 Hypertensive chronic kidney disease with stage 1 through stage 4 chronic kidney disease, or unspecified chronic kidney disease; M15.9 Polyosteoarthritis, unspecified; N18.3 Chronic kidney disease, stage 3 (moderate); Z79.84 Long term (current) use of oral hypoglycemic drugs
CPT/HCPCS: G9019; J3370

== ENCOUNTER 2018-12-09 20:37 | Emergency (ER) | payer OTHER ==
[~2018-12-09] VITALS: Ht 162.6 cm; Wt 64.0 kg
[~2018-12-09 20:37] MED LIST changes: +DOXYCYCL HYC100 MG PO
[2018-12-09 21:18] LABS: HEMATOCRIT 36.7 % (37.0-47.0); HEMOGLOBIN 11.8 g/dl (12.0-16.0); IMMATURE GRANULOCYTES 0.3 % (0.0-5.0); MEAN CELL VOLUME 79.6 fL CALC (80.0-100.0); MEAN CORPUSCULAR HGB 25.6 pG CALC (26.0-32.0); MEAN CORPUSCULAR HGB CONC 32.2 g/L CALC (32.0-36.0); NEUT# 3.06 thou/uL (2.00-7.15); RED BLOOD COUNT 4.61 mill/uL (4.20-5.60); RED CELL DISTRI WIDTH 16.8 % (11.5-15.5)
[2018-12-09 21:46] LABS: URINE BILIRUBIN - DIPSTICK NEGATIVE (NEGATIVE); URINE BLOOD DIPSTICK NEGATIVE (NEGATIVE); URINE COLOR YELLOW; URINE GLUCOSE - DIPSTICK 100 mg/dL (NEGATIVE); URINE KETONE NEGATIVE (NEGATIVE); URINE LEUK ESTERASE NEGATIVE (NEGATIVE); URINE NITRITE - DIPSTICK NEGATIVE (Negative); URINE PH 6.5 (4.5-8.0); URINE PROTEIN - DIPSTICK NEGATIVE (NEG-TRACE); URINE UROBILINOGEN - DIPSTICK 0.2 E.U./dL (0.2)
[2018-12-09 21:47] LABS: BARBITURATES NEGATIVE (NEGATIVE); COCAINE NEGATIVE (NEGATIVE); METHADONE NEGATIVE (NEGATIVE); OXCYCODONE NEGATIVE (NEGATIVE); TETRAHYDROCANNABIONOL NEGATIVE (NEGATIVE); TRICYLIC ANTIDEPRESSANTS NEGATIVE (NEGATIVE)
[2018-12-09 22:10] LABS: ALBUMIN 4.3 g/dL (3.2-5.0); ALKALINE PHOSPHATASE 86 u/l (38-126); ANION GAP 15 (6-22 (CALC)); BILIRUBIN, TOTAL 0.5 mg/dL (0.0-1.4); BUN 25 mg/dL (7-17); BUN/CREATININE RATIO 20 (12-20 (CALC)); CARBON DIOXIDE 26 mmol/l (22-30); CHLORIDE 106 mmol/l (95-108); CREATININE 1.3 mg/dL (0.5-1.0); ETHYL ALCOHOL 0 mg/dl (0-30); GFR 43 ML/MIN (>=60 (CALC)); GFR FOR AFR.AMER. 52 ML/MIN (>=60 (CALC)); POTASSIUM 4.6 mmol/l (3.5-5.1); SGOT/AST 87 u/l (14-36); SODIUM 143 mmol/l (137-146); TOTAL PROTEIN 7.2 g/dL (6.3-8.2)
[2018-12-09 22:21] LABS: MYOGLOBIN 35 ng/mL (0 - 62)
[2018-12-10 06:51] VITALS: BP 172/94
== END 2018-12-10 06:52 | disposition home or self-care (01) ==
LOC: ED 20:37
PROVIDERS: Emergency Medicine
DX: F19.10 Other psychoactive substance abuse, uncomplicated (principal); I48.91 Unspecified atrial fibrillation; I10 Essential (primary) hypertension; I25.10 Atherosclerotic heart disease of native coronary artery without angina pectoris; J44.9 Chronic obstructive pulmonary disease, unspecified; T45.516A Underdosing of anticoagulants, initial encounter; Z91.128 Patient's intentional underdosing of medication regimen for other reason; R11.0 Nausea

== ENCOUNTER 2019-01-06 19:52 | Observation (INO) | payer OTHER ==
[~2019-01-06] VITALS: Ht 162.6 cm; Wt 65.5 kg
[2019-01-06 20:55] LABS: HEMATOCRIT 35.9 % (37.0-47.0); HEMOGLOBIN 11.2 g/dl (12.0-16.0); IMMATURE GRANULOCYTES 0.3 % (0.0-5.0); MEAN CELL VOLUME 80.9 fL CALC (80.0-100.0); MEAN CORPUSCULAR HGB 25.2 pG CALC (26.0-32.0); MEAN CORPUSCULAR HGB CONC 31.2 g/L CALC (32.0-36.0); NEUT# 2.81 thou/uL (2.00-7.15); RED BLOOD COUNT 4.44 mill/uL (4.20-5.60); RED CELL DISTRI WIDTH 17.4 % (11.5-15.5)
[2019-01-06 21:24] LABS: URINE BILIRUBIN - DIPSTICK NEGATIVE (NEGATIVE); URINE BLOOD DIPSTICK NEGATIVE (NEGATIVE); URINE COLOR YELLOW; URINE GLUCOSE - DIPSTICK NEGATIVE (NEGATIVE); URINE KETONE NEGATIVE (NEGATIVE); URINE LEUK ESTERASE NEGATIVE (NEGATIVE); URINE NITRITE - DIPSTICK NEGATIVE (Negative); URINE PH 5.5 (4.5-8.0); URINE PROTEIN - DIPSTICK NEGATIVE (NEG-TRACE); URINE SPECIFIC GRAVITY <=1.005; URINE UROBILINOGEN - DIPSTICK 0.2 E.U./dL (0.2)
[2019-01-06 21:28] LABS: ALBUMIN 4.2 g/dL (3.2-5.0); ALKALINE PHOSPHATASE 82 u/l (38-126); ANION GAP 14 (6-22 (CALC)); BILIRUBIN, TOTAL 0.9 mg/dL (0.0-1.4); BUN 28 mg/dL (7-17); BUN/CREATININE RATIO 23 (12-20 (CALC)); CARBON DIOXIDE 24 mmol/l (22-30); CHLORIDE 106 mmol/l (95-108); CREATININE 1.2 mg/dL (0.5-1.0); GFR 47 ML/MIN (>=60 (CALC)); GFR FOR AFR.AMER. 57 ML/MIN (>=60 (CALC)); POTASSIUM 4.2 mmol/l (3.5-5.1); SGOT/AST 76 u/l (14-36); SODIUM 140 mmol/l (137-146); TOTAL PROTEIN 7.2 g/dL (6.3-8.2)
[2019-01-06] MEDS ORDERED: METFORMIN500 MG PO (21:38)
[2019-01-06 21:39] LABS: ACT PARTIAL THROMBO TIME 27.4 SECONDS (20.0-32.5); PROTHROMBIN TIME 10.7 SECONDS (9.0-12.5)
[2019-01-06] MEDS ORDERED: THYROID MED (21:39)
[2019-01-06 21:40] LABS: MYOGLOBIN 29 ng/mL (0 - 62)
--- NOTE | 2019-01-06 22:21 | NUR ---
PT RESTING. STATES FEELS BETTER. 03/24.
[2019-01-07] VITALS (8 sets, daily range): BP systolic 118–170; BP diastolic 78–110
--- NOTE | 2019-01-07 00:40 | NUR ---
ASSESSMENT IS COMPLETED, IV SITE IS FREE FROM REDNESS OR EDEMA. HR IS REG,PULSES ARE STRONG X4, ABD IS SOFT WITH ACTIVE BS. BREATH SOUNDS ARE CLEAR, BILATERALLY, NO C/O SOB. CALL CESAR WITHIN REACH. CONTINUE TO OBSERVE AND MONITOR.
--- NOTE | 2019-01-07 02:16 | NUR ---
PT IS RESTING WITH EYES CLOSED, NO DISTRESS NOTED. IV SITE IS FREE FROM REDNESS OR EDEMA.
--- NOTE | 2019-01-07 04:15 | NUR ---
PT IS RESTING IN BED WITH NO DISTRESS NOTED IV SITE IS FREE FROM REDNESS OR EDEMA.
[2019-01-07 06:59] LABS: HEMOGLOBIN 12.1 g/dl (12.0-16.0); IMMATURE GRANULOCYTES 0.2 % (0.0-5.0); MEAN CELL VOLUME 79.3 fL CALC (80.0-100.0); MEAN CORPUSCULAR HGB 25.3 pG CALC (26.0-32.0); MEAN CORPUSCULAR HGB CONC 31.8 g/L CALC (32.0-36.0); NEUT# 2.12 thou/uL (2.00-7.15); RED BLOOD COUNT 4.79 mill/uL (4.20-5.60); RED CELL DISTRI WIDTH 17.3 % (11.5-15.5)
[2019-01-07 07:15] LABS: ALBUMIN 4.1 g/dL (3.2-5.0); BILIRUBIN, TOTAL 1.3 mg/dL (0.0-1.4); CHOLESTEROL HDL RATIO 1.9 (<4.4 (CALC)); CREATININE 1.3 mg/dL (0.5-1.0); POTASSIUM 3.6 mmol/l (3.5-5.1); TOTAL PROTEIN 7.2 g/dL (6.3-8.2)
--- NOTE | 2019-01-07 08:20 | NUR ---
PT RESTING IN BED NO SIGNS OF DISTRESS NOTED, RESP EVEN AND UNLABORED. DENIES CP, DISCUSSED WITH PT SIDE EFFECTS OF NITRO. DISCUSSED POC, PT ALERT AND ORIENTED X3.VITALS OBTAINED, BP ELEVATED NOTIFIED MD FOR ORDERS, MANAGER PORTABLE TO DISCUSS WITH PT. ASSESSMENT COMPLETED AT THIS TIME. CALL LIGHT IN REACH,CONTINUE TO MONITOR.
--- NOTE | 2019-01-07 11:46 | NUR ---
RN TO BEDSIDE TO ADMINISTER IV APRESOLINE, AND RACIEL. PT IN AGREEMENT. CONTINUE TO MONITOR.
--- NOTE | 2019-01-07 12:25 | NUR ---
MD AND ENGINE DESIGNER TO BEDSIDE DISCUSSED POC WITH PT, PT TEARFUL, MD AND ENGINE DESIGNER DISCUSSED MEDICATIONS WITH PT. CALL LIGHT IN REACH,CONTINUE TO MONITOR.
--- NOTE | 2019-01-07 22:45 | NUR ---
PATIENT PRESENT CHANGE IN THE RHYTHM VT 16 BEATS. INMEDIATELY VERIFY VITAL SIGNS PATIENT ASYMPTOMATIC, PATIENT DENIED PAIN, SOB OR DISCOMFORT.RT NOTIFY FOR EKG.
--- NOTE | 2019-01-07 23:15 | NUR ---
CALL DR. PADRON FOR CHANGE RHYTHM. ATRIAL FLUTTER WITH VARIABLE AV BLOCK. 16 BEATS VT. EKG DONE, CURRENT VITAL SIGNS. PATIENT ASYMPTOMATIC. NO NEW ORDER RECEIVE.
[2019-01-08 04:10] VITALS: BP 142/92
--- NOTE | 2019-01-08 04:31 | NUR ---
PATIENT SLEEP VERY GOOD ALL RESTING NIGHT. DENIED CHEST PAIN, SOB OR DISCONFORT. PROVIED CONFORT
[2019-01-08 05:11] LABS: HEMATOCRIT 40.1 % (37.0-47.0); HEMOGLOBIN 12.7 g/dl (12.0-16.0); IMMATURE GRANULOCYTES 0.6 % (0.0-5.0); MEAN CELL VOLUME 80.4 fL CALC (80.0-100.0); MEAN CORPUSCULAR HGB 25.5 pG CALC (26.0-32.0); MEAN CORPUSCULAR HGB CONC 31.7 g/L CALC (32.0-36.0); NEUT# 2.19 thou/uL (2.00-7.15); RED BLOOD COUNT 4.99 mill/uL (4.20-5.60); RED CELL DISTRI WIDTH 17.4 % (11.5-15.5)
[2019-01-08 05:31] LABS: CREATININE 1.2 mg/dL (0.5-1.0); MAGNESIUM 1.8 mg/dL (1.6-2.3); POTASSIUM 4.3 mmol/l (3.5-5.1)
[2019-01-08 07:07] VITALS: BP 121/85
[2019-01-08 07:43] VITALS: BP 150/101
--- NOTE | 2019-01-08 07:45 | NUR ---
PT RESTING IN BED, NO SIGNS OF DISTRESS NOTED, RESP EVEN AND UNLABORED. PT ALERT AND ORIENTED X3, NO C/O CHESTPAIN. BP ELEVATED AT THIS TIME, MEDICATED PER MAR. WILL RETURN TO RECHECK BP ONCE MEDICATIONS TAKE AFFECT. DISCUSSED POC, PT IN AGREEMENT. TELEMETRY IN PLACE, SKIN INTACT. IV TO RH SL FLUSHED WELL. ASSESSMENT COMPLETED AT THIS TIME. CALL LIGHT IN REACH,CONTINUE TO MONITOR.
[2019-01-08 08:58] VITALS: BP 154/93
--- NOTE | 2019-01-08 11:00 | NUR ---
PT SHOWERED AND IV SITE WAS DISLODGED. NOTIFIED MD AND WILL WAIT TO SEE IF PT IS DISCHARGED, PT IN AGREEMENT. CALL LIGHT IN REACH,CONTINUE TO MONITOR.
[2019-01-08 11:17] VITALS: BP 141/85
[2019-01-08] MEDS ORDERED: ELIQUIS2.5 MG PO (14:09)
[2019-01-08] MEDS ORDERED: METFORMIN500 MG PO (14:09)
[2019-01-08] MEDS ORDERED: PROTONIX40 M2 PO (14:09)
[2019-01-08] MEDS ORDERED: NORVASC10 M1 PO (14:09)
[2019-01-08] MEDS ORDERED: DILTIAZEM CD300 MG PO (14:09)
[2019-01-08] MEDS ORDERED: DIOVAN HC2 PO (14:09)
--- NOTE | 2019-01-08 14:31 | NUR ---
Discharge instructions given. Patient verbalizes understanding of same. Discharged in stable condition via Wheelchair to Home with *Other. All belongings sent with pt.
== END 2019-01-08 14:30 | disposition home or self-care (01) ==
LOC: ED 19:52 → ED-I 22:16 → ED 22:41 → MS2 22:42
PROVIDERS: Emergency Medicine; Nurse Practitioner Family; ADMIT Internal Medicine Nephrology; ATTEND Internal Medicine Nephrology
DX: I16.0 Hypertensive urgency (principal); I13.0 Hypertensive heart and chronic kidney disease with heart failure and stage 1 through stage 4 chronic kidney disease, or unspecified chronic kidney disease; I50.9 Heart failure, unspecified; E11.22 Type 2 diabetes mellitus with diabetic chronic kidney disease; N18.3 Chronic kidney disease, stage 3 (moderate); I25.10 Atherosclerotic heart disease of native coronary artery without angina pectoris; I48.92 Unspecified atrial flutter; I48.0 Paroxysmal atrial fibrillation; J44.9 Chronic obstructive pulmonary disease, unspecified; M19.90 Unspecified osteoarthritis, unspecified site; T50.906A Underdosing of unspecified drugs, medicaments and biological substances, initial encounter; Z91.128 Patient's intentional underdosing of medication regimen for other reason; R07.9 Chest pain, unspecified; R06.02 Shortness of breath
CPT/HCPCS: G0378

== ENCOUNTER 2019-03-13 21:41 | Emergency (ER) | payer OTHER ==
[~2019-03-13] VITALS: Ht 162.6 cm; Wt 84.5 kg
[~2019-03-13 21:41] MED LIST changes: +ELIQUIS2.5 MG PO; +THYROID MED
[2019-03-13 22:52] LABS: HEMATOCRIT 37.9 % (37.0-47.0); HEMOGLOBIN 11.8 g/dl (12.0-16.0); IMMATURE GRANULOCYTES 0.2 % (0.0-5.0); MEAN CELL VOLUME 79.8 fL CALC (80.0-100.0); MEAN CORPUSCULAR HGB 24.8 pG CALC (26.0-32.0); MEAN CORPUSCULAR HGB CONC 31.1 g/L CALC (32.0-36.0); NEUT# 3.45 thou/uL (2.00-7.15); RED BLOOD COUNT 4.75 mill/uL (4.20-5.60); RED CELL DISTRI WIDTH 15.9 % (11.5-15.5)
[2019-03-13 23:03] LABS: URINE BILIRUBIN - DIPSTICK NEGATIVE (NEGATIVE); URINE BLOOD DIPSTICK TRACE-INTACT (NEGATIVE); URINE COLOR YELLOW; URINE GLUCOSE - DIPSTICK NEGATIVE (NEGATIVE); URINE KETONE NEGATIVE (NEGATIVE); URINE LEUK ESTERASE NEGATIVE (NEGATIVE); URINE NITRITE - DIPSTICK NEGATIVE (Negative); URINE PH 5.5 (4.5-8.0); URINE PROTEIN - DIPSTICK TRACE mg/dL (NEG-TRACE); URINE SPECIFIC GRAVITY 1.015; URINE UROBILINOGEN - DIPSTICK 0.2 E.U./dL (0.2)
[2019-03-13 23:05] LABS: ALBUMIN 4.7 g/dL (3.2-5.0); ALKALINE PHOSPHATASE 81 u/l (38-126); ANION GAP 14 (6-22 (CALC)); BILIRUBIN, TOTAL 0.7 mg/dL (0.0-1.4); BUN 28 mg/dL (7-17); BUN/CREATININE RATIO 20 (12-20 (CALC)); CARBON DIOXIDE 23 mmol/l (22-30); CHLORIDE 108 mmol/l (95-108); CREATININE 1.4 mg/dL (0.5-1.0); GFR 39 ML/MIN (>=60 (CALC)); GFR FOR AFR.AMER. 48 ML/MIN (>=60 (CALC)); LIPASE 191 u/l (23-300); POTASSIUM 4.1 mmol/l (3.5-5.1); SGOT/AST 47 u/l (14-36); SODIUM 141 mmol/l (137-146)
[2019-03-13 23:09] LABS: BARBITURATES NEGATIVE (NEGATIVE); COCAINE NEGATIVE (NEGATIVE); METHADONE NEGATIVE (NEGATIVE); OXCYCODONE NEGATIVE (NEGATIVE); TETRAHYDROCANNABIONOL POSITIVE (NEGATIVE); TRICYLIC ANTIDEPRESSANTS NEGATIVE (NEGATIVE)
[2019-03-13 23:15] LABS: INTERNATIONAL NORMALIZED RATIO 1.1 RATIO (0.7-1.3)
[2019-03-13 23:17] LABS: MYOGLOBIN 96 ng/mL (0 - 62)
[2019-03-14 03:09] VITALS: BP 139/72
== END 2019-03-14 03:10 | disposition home or self-care (01) | DRG 305 ==
LOC: ED 21:41
PROVIDERS: Emergency Medicine
DX: I10 Essential (primary) hypertension (principal); R07.89 Other chest pain; I48.91 Unspecified atrial fibrillation; Z79.01 Long term (current) use of anticoagulants

== ENCOUNTER 2019-10-30 17:35 | Emergency (ER) | payer OTHER ==
[~2019-10-30] VITALS: Ht 162.6 cm; Wt 75.9 kg
[2019-10-30 18:39] LABS: HEMATOCRIT 42.9 % (37.0-47.0); HEMOGLOBIN 13.2 g/dl (12.0-16.0); IMMATURE GRANULOCYTES 0.2 % (0.0-5.0); MEAN CORPUSCULAR HGB 23.2 pG CALC (26.0-32.0); MEAN CORPUSCULAR HGB CONC 30.8 g/L CALC (32.0-36.0); NEUT# 4.08 thou/uL (2.00-7.15); RED BLOOD COUNT 5.68 mill/uL (4.20-5.60); RED CELL DISTRI WIDTH 19.5 % (11.5-15.5)
[2019-10-30 18:41] LABS: MEAN CELL VOLUME 75.5 fL CALC (80.0-100.0)
[2019-10-30 18:52] LABS: ALBUMIN 5.1 g/dL (3.2-5.0); BUN 17 mg/dL (7-17); BUN/CREATININE RATIO 12 (12-20 (CALC)); CHLORIDE 106 mmol/l (95-108); CREATININE 1.4 mg/dL (0.5-1.0); GFR 39 ML/MIN (>=60 (CALC)); GFR FOR AFR.AMER. 47 ML/MIN (>=60 (CALC)); LIPASE 243 u/l (23-300); POTASSIUM 3.6 mmol/l (3.5-5.1); SGOT/AST 28 u/l (14-36); SODIUM 140 mmol/l (137-146); TOTAL PROTEIN 9.5 g/dL (6.3-8.2)
[2019-10-30 18:55] LABS: ALKALINE PHOSPHATASE 126 u/l (38-126); ANION GAP 16 (6-22 (CALC)); BILIRUBIN, TOTAL 1.3 mg/dL (0.0-1.4); CARBON DIOXIDE 22 mmol/l (22-30)
[2019-10-30 19:58] LABS: URINE BILIRUBIN - DIPSTICK NEGATIVE (NEGATIVE); URINE BLOOD DIPSTICK TRACE-INTACT (NEGATIVE); URINE COLOR YELLOW; URINE GLUCOSE - DIPSTICK NEGATIVE (NEGATIVE); URINE KETONE TRACE mg/dL (NEGATIVE); URINE LEUK ESTERASE NEGATIVE (NEGATIVE); URINE NITRITE - DIPSTICK NEGATIVE (Negative); URINE PROTEIN - DIPSTICK NEGATIVE (NEG-TRACE); URINE UROBILINOGEN - DIPSTICK 0.2 E.U./dL (0.2)
[2019-10-30] MEDS ORDERED: ULTRAM50 M1 PO (20:32)
[2019-10-30] MEDS ORDERED: ONDANSETRON4 MG PO (20:32)
[2019-10-30 20:50] VITALS: BP 182/80
== END 2019-10-30 20:53 | disposition home or self-care (01) ==
LOC: ED 17:35
PROVIDERS: Family Medicine
DX: B34.9 Viral infection, unspecified (principal); I10 Essential (primary) hypertension; I25.10 Atherosclerotic heart disease of native coronary artery without angina pectoris; I48.91 Unspecified atrial fibrillation; J44.9 Chronic obstructive pulmonary disease, unspecified; Z79.84 Long term (current) use of oral hypoglycemic drugs

== ENCOUNTER 2019-12-30 | Emergency (ER) | payer OTHER ==
[~2019-12-30] MED LIST changes: +ONDANSETRON4 MG PO
[2019-12-30 02:13] LABS: HEMATOCRIT 38.2 % (37.0-47.0); HEMOGLOBIN 11.4 g/dl (12.0-16.0); IMMATURE GRANULOCYTES 0.4 % (0.0-5.0); MEAN CORPUSCULAR HGB CONC 29.8 g/L CALC (32.0-36.0); NEUT# 3.76 thou/uL (2.00-7.15); RED BLOOD COUNT 4.75 mill/uL (4.20-5.60); RED CELL DISTRI WIDTH 17.4 % (11.5-15.5)
[2019-12-30 02:16] LABS: URINE BILIRUBIN - DIPSTICK NEGATIVE (NEGATIVE); URINE BLOOD DIPSTICK NEGATIVE (NEGATIVE); URINE COLOR YELLOW; URINE GLUCOSE - DIPSTICK 100 mg/dL (NEGATIVE); URINE KETONE NEGATIVE (NEGATIVE); URINE LEUK ESTERASE NEGATIVE (NEGATIVE); URINE NITRITE - DIPSTICK NEGATIVE (Negative); URINE PROTEIN - DIPSTICK NEGATIVE (NEG-TRACE); URINE UROBILINOGEN - DIPSTICK 0.2 E.U./dL (0.2)
[2019-12-30 02:20] LABS: BARBITURATES NEGATIVE (NEGATIVE); COCAINE NEGATIVE (NEGATIVE); MEAN CELL VOLUME 80.4 fL CALC (80.0-100.0); METHADONE NEGATIVE (NEGATIVE); OXCYCODONE NEGATIVE (NEGATIVE); TETRAHYDROCANNABIONOL NEGATIVE (NEGATIVE); TRICYLIC ANTIDEPRESSANTS NEGATIVE (NEGATIVE)
[2019-12-30 02:23] LABS: ALBUMIN 4.5 g/dL (3.2-5.0); ALKALINE PHOSPHATASE 80 u/l (38-126); ANION GAP 12 (6-22 (CALC)); BUN 26 mg/dL (7-17); BUN/CREATININE RATIO 20 (12-20 (CALC)); CARBON DIOXIDE 26 mmol/l (22-30); CHLORIDE 106 mmol/l (95-108); CREATININE 1.3 mg/dL (0.5-1.0); GFR 43 ML/MIN (>=60 (CALC)); GFR FOR AFR.AMER. 52 ML/MIN (>=60 (CALC)); SGOT/AST 39 u/l (14-36); SODIUM 140 mmol/l (137-146); TOTAL PROTEIN 8.4 g/dL (6.3-8.2)
[2019-12-30 02:29] LABS: BILIRUBIN, TOTAL 0.5 mg/dL (0.0-1.4)
[2019-12-30 02:35] LABS: MYOGLOBIN 31 ng/mL (0 - 62)
[2019-12-30] MEDS ORDERED: CELEBREX100 M1 PO (02:55)
[2019-12-30] MEDS ORDERED: TORADOL PO (03:32)
== END 2019-12-30 03:40 | disposition home or self-care (01) ==
PROVIDERS: Family Medicine
DX: R07.89 Other chest pain (principal); I10 Essential (primary) hypertension; I25.10 Atherosclerotic heart disease of native coronary artery without angina pectoris; I48.91 Unspecified atrial fibrillation; E11.9 Type 2 diabetes mellitus without complications; J44.9 Chronic obstructive pulmonary disease, unspecified; Z79.84 Long term (current) use of oral hypoglycemic drugs

== ENCOUNTER 2020-01-27 03:45 | Observation (INO) | payer OTHER ==
[~2020-01-27] VITALS: Ht 165.1 cm; Wt 71.6 kg
[~2020-01-27 03:45] MED LIST changes: +CELEBREX100 M1 PO; +TORADOL PO
--- NOTE | 2020-01-27 03:47 | NUR ---
PT TO ROOM 10 FOR TRIAGE.
--- NOTE | 2020-01-27 03:50 | NUR ---
A/O M WITH RECURRENT R SIDED NECK AND TRUNK PAIN.NO CP.TOOK HER HYDROMORPHONE 8MG JPTA. OCC RETORT OPERATOR COUGH.W/D SKIN A FIB ON MONITOR HX SAME.
[2020-01-27] MEDS ORDERED: HYDROMORPHON8 MG PO (04:45)
[2020-01-27] MEDS ORDERED: MIRTAZAPINE30 M1 PO (04:47)
[2020-01-27] MEDS ORDERED: FUROSEMIDE20 MG PO ×2 (04:49→11:37)
[2020-01-27] MEDS ORDERED: KLOR-CON M1010 MEQ PO (04:50)
[2020-01-27] MEDS ORDERED: [UNRECOGNIZED DRUG - OTHER] (04:55)
[2020-01-27] MEDS ORDERED: SPIRIVA HANDIH18 MCG (04:56)
[2020-01-27 05:07] LABS: HEMATOCRIT 34.9 % (37.0-47.0); HEMOGLOBIN 10.8 g/dl (12.0-16.0); IMMATURE GRANULOCYTES 0.4 % (0.0-5.0); MEAN CELL VOLUME 78.8 fL CALC (80.0-100.0); MEAN CORPUSCULAR HGB 24.4 pG CALC (26.0-32.0); MEAN CORPUSCULAR HGB CONC 30.9 g/L CALC (32.0-36.0); NEUT# 3.94 thou/uL (2.00-7.15); RED BLOOD COUNT 4.43 mill/uL (4.20-5.60); RED CELL DISTRI WIDTH 17.2 % (11.5-15.5)
[2020-01-27 05:08] LABS: URINE BILIRUBIN - DIPSTICK NEGATIVE (NEGATIVE); URINE BLOOD DIPSTICK NEGATIVE (NEGATIVE); URINE COLOR YELLOW; URINE GLUCOSE - DIPSTICK 100 mg/dL (NEGATIVE); URINE KETONE NEGATIVE (NEGATIVE); URINE LEUK ESTERASE NEGATIVE (NEGATIVE); URINE NITRITE - DIPSTICK NEGATIVE (Negative); URINE PH 7.5 (4.5-8.0); URINE PROTEIN - DIPSTICK NEGATIVE (NEG-TRACE); URINE UROBILINOGEN - DIPSTICK 0.2 E.U./dL (0.2)
--- NOTE | 2020-01-27 05:20 | NUR ---
PT AMB TO RR TO VOID NO C/O PAIN NO COUGH NOR SOB
[2020-01-27 06:10] LABS: ALBUMIN 4.5 g/dL (3.2-5.0); ALKALINE PHOSPHATASE 78 u/l (38-126); AMYLASE 113 u/l (30-110); ANION GAP 11 (6-22 (CALC)); BILIRUBIN, TOTAL 0.7 mg/dL (0.0-1.4); BUN 22 mg/dL (7-17); BUN/CREATININE RATIO 16 (12-20 (CALC)); CARBON DIOXIDE 28 mmol/l (22-30); CHLORIDE 105 mmol/l (95-108); CREATININE 1.4 mg/dL (0.5-1.0); GFR 39 ML/MIN (>=60 (CALC)); GFR FOR AFR.AMER. 47 ML/MIN (>=60 (CALC)); LIPASE 222 u/l (23-300); POTASSIUM 3.9 mmol/l (3.5-5.1); SGOT/AST 28 u/l (14-36); SODIUM 140 mmol/l (137-146); TOTAL PROTEIN 8.2 g/dL (6.3-8.2)
[2020-01-27 06:21] LABS: MYOGLOBIN 29 ng/mL (0 - 62)
--- NOTE | 2020-01-27 06:30 | NUR ---
PT TO CTA VIA STRETCHER IN SRTAABLE CONDITION NO COUGH NO SOB
[2020-01-27] MEDS ORDERED: ELIQUIS2.5 MG (06:47)
--- NOTE | 2020-01-27 06:51 | NUR ---
PT REPORT TO NURSE BEN
--- NOTE | 2020-01-27 07:00 | NUR ---
PT STATES IMPROVEMENT OF DISCOMFORT. NO SOB, UPDATED ON ADMIT AND PT AGREEABLE. ALL MONITORS ASSESSED AND LIGHTS DIMMED FOR COMFORT.
--- NOTE | 2020-01-27 07:35 | NUR ---
ATTEMPTED TO CALL REPORT, NURSE WITH A PT
--- NOTE | 2020-01-27 07:50 | NUR ---
REPORT CALLED TO IVAN MARCH MS. NOTED PT TO HAVE SEVERAL EPISODES OF AFLUTTER WITH STABLE RATE 88. SUPERVISOR PRODUCTION MANAGING CALLED NOTIFIED. PT ASYMPTOMATIC. TRANSFERED TO DE VIA WITH TELE IN NO DISTRESS
--- NOTE | 2020-01-27 09:00 | NUR ---
0900-Met pt at bedside with HORTICULTURE/FLORICULTURE TEACHERIVAN Correa. No s/s of distress. Pt denies pain. Bed low and locked. Call light and phone within reach. Pt stable. Will continue to monitor closely.
[2020-01-27 10:00] VITALS: BP 151/103
[2020-01-27] MEDS ORDERED: HYDROMORPHONE HC8 M1 PO (11:31)
[2020-01-27] MEDS ORDERED: NORVASC5 M1 PO (11:32)
[2020-01-27] MEDS ORDERED: LORATADINE10 M1 PO (11:35)
[2020-01-27] MEDS ORDERED: FLONASE AL50 MCG/ACT (11:35)
[2020-01-27] MEDS ORDERED: PROTONIX40 M2 PO (11:35)
[2020-01-27] MEDS ORDERED: SPIRIVA HANDIH18 MCG PO (11:37)
[2020-01-27] MEDS ORDERED: SYMBICORT1 AE1 PO (11:37)
--- NOTE | 2020-01-27 14:15 | NUR ---
1415-Pt system review. Pt sleeping in bed. Eyes respond and open to command, pt is alert but tired. Denies pain, no s/s of distress. Bed low and locked, call light and phone within reach. Pt stable. Will continue to monitor.
[2020-01-27 15:38] VITALS: BP 156/96
--- NOTE | 2020-01-27 18:00 | NUR ---
1800-Pt lying in bed, fluids and snack provided. Pt denies pain. No s/s of distress. Bed low and locked. Call light and phone within reach. Pt stable. Angel continue to monitor.
--- NOTE | 2020-01-27 18:44 | NUR ---
1844-Pt states she is having pain in her left labia, possibly a boil or flare up is what the pt states. She also wants bath from CONTRACT ADMINISTRATION SPECIALIST. I assessed it and it is hard and round under the skin. Will notify night nurse. Pt stable. Bed low and locked call light and phone within reach. Will continue to monitor.
[2020-01-27 20:29] VITALS: BP 156/84
[2020-01-27 23:27] VITALS: BP 140/84
--- NOTE | 2020-01-28 00:37 | NUR ---
PATIENT RESTING IN BED AT THIS TIME-NO COMPLAINTS AT THIS TIME. TELE MONITOR IN PLACE. SALINE LOCK INTACT TO LEFT AC-SITE IS HEALTHY AT THIS TIME. CALL LIGHT IN REACH. WILL CONT TO MONITOR.
[2020-01-28 03:58] VITALS: BP 162/99
[2020-01-28 07:33] VITALS: BP 152/89
--- NOTE | 2020-01-28 07:33 | NUR ---
PT SLEEPING IN BED, AWAKENED TO COMPLETE ASSESSMENT. A&O X3. NO DISTRESS NOTED. PT DENIES ANY PAIN AT THIS TIME. NO OTHER NEEDS AT THIS TIME. ASSESSMENT COMPLETED. DISCUSSED POC. CALL LIGHT IN REACH. CONTINUE TO MONITOR.
[2020-01-28 12:03] VITALS: BP 144/94
[2020-01-28] MEDS ORDERED: FLEXERIL5 M1 PO (12:54)
[2020-01-28 13:18] LABS: CREATININE 1.2 mg/dL (0.5-1.0); POTASSIUM 3.7 mmol/l (3.5-5.1)
--- NOTE | 2020-01-28 13:52 | NUR ---
D/C INSTRUCTIONS GIVEN TO PT. PT VERBALIZED UNDERSTANDING. IV INTACT UPON REMOVAL
--- NOTE | 2020-01-28 14:03 | NUR ---
Discharge instructions given. Patient verbalizes understanding of same. Discharged in stable condition via wheelchair to home accompanied by staff. All belongings sent with pt.
--- NOTE | 2020-01-28 14:31 | NUR ---
Discharge instructions given. Patient verbalizes understanding of same. Discharged in stable condition via wheelchair to home accompanied by staff. All belongings sent with pt.
== END 2020-01-28 14:03 | disposition home or self-care (01) ==
LOC: ED 03:45 → ED-I 06:44 → ED 06:59 → ED-I 07:00 → MS2 07:14
PROVIDERS: Emergency Medicine; Nurse Practitioner Family; ADMIT Internal Medicine; ATTEND Internal Medicine
DX: R07.89 Other chest pain (principal); I13.0 Hypertensive heart and chronic kidney disease with heart failure and stage 1 through stage 4 chronic kidney disease, or unspecified chronic kidney disease; E11.22 Type 2 diabetes mellitus with diabetic chronic kidney disease; N18.3 Chronic kidney disease, stage 3 (moderate); I50.9 Heart failure, unspecified; I08.0 Rheumatic disorders of both mitral and aortic valves; I42.9 Cardiomyopathy, unspecified; I48.0 Paroxysmal atrial fibrillation; I25.10 Atherosclerotic heart disease of native coronary artery without angina pectoris; J45.909 Unspecified asthma, uncomplicated; Z79.84 Long term (current) use of oral hypoglycemic drugs; Z79.01 Long term (current) use of anticoagulants
CPT/HCPCS: G0378

== ENCOUNTER 2020-02-08 | Emergency (ER) | payer OTHER ==
[~2020-02-08] MED LIST changes: +ELIQUIS2.5 MG; +FLEXERIL5 M1 PO; +FLONASE AL50 MCG/ACT; +FUROSEMIDE20 MG PO; +HYDROMORPHON8 MG PO; +HYDROMORPHONE HC8 M1 PO; +KLOR-CON M1010 MEQ PO; +LORATADINE10 M1 PO; +MIRTAZAPINE30 M1 PO; +NORVASC5 M1 PO; +SPIRIVA HANDIH18 MCG; +SPIRIVA HANDIH18 MCG PO; +SYMBICORT1 AE1 PO; +[UNRECOGNIZED DRUG - OTHER]
[2020-02-08] MEDS ORDERED: PROAIR HFA108 MCG/AC PO ×2 (08:24→08:33)
== END 2020-02-08 08:34 | disposition home or self-care (01) ==
DX: J06.9 Acute upper respiratory infection, unspecified (principal); I10 Essential (primary) hypertension; E11.9 Type 2 diabetes mellitus without complications; I48.91 Unspecified atrial fibrillation; Z20.828 Contact with and (suspected) exposure to other viral communicable diseases

== ENCOUNTER 2020-02-17 | Emergency (ER) | payer OTHER ==
[~2020-02-17] MED LIST changes: +PROAIR HFA108 MCG/AC PO
[2020-02-17 08:44] LABS: HEMATOCRIT 36.5 % (37.0-47.0); HEMOGLOBIN 10.5 g/dl (12.0-16.0); MEAN CELL VOLUME 82.8 fL CALC (80.0-100.0); MEAN CORPUSCULAR HGB 23.8 pG CALC (26.0-32.0); MEAN CORPUSCULAR HGB CONC 28.8 g/dL CAL (32.0-36.0); NEUT# 5.16 thou/uL (2.00-7.15); RED BLOOD COUNT 4.41 mill/uL (4.20-5.60); RED CELL DISTRI WIDTH 17.2 % (11.5-15.5)
[2020-02-17 08:55] LABS: ALBUMIN 4.6 g/dL (3.2-5.0); ALKALINE PHOSPHATASE 98 u/l (38-126); BUN 17 mg/dL (7-17); BUN/CREATININE RATIO 11 (12-20 (CALC)); CHLORIDE 109 mmol/l (95-108); CREATININE 1.5 mg/dL (0.5-1.0); GFR 36 ML/MIN (>=60 (CALC)); GFR FOR AFR.AMER. 44 ML/MIN (>=60 (CALC)); SODIUM 142 mmol/l (137-146); TOTAL PROTEIN 8.4 g/dL (6.3-8.2)
[2020-02-17 08:59] LABS: ANION GAP 20 (6-22 (CALC)); CARBON DIOXIDE 18 mmol/l (22-30); POTASSIUM 4.8 mmol/l (3.5-5.1); SGOT/AST 134 u/l (14-36)
[2020-02-17 09:04] LABS: MYOGLOBIN 35 ng/mL (0 - 62)
== END 2020-02-17 14:28 | disposition short-term general hospital (02) ==
PROVIDERS: Family Medicine
DX: J18.9 Pneumonia, unspecified organism (principal); J96.90 Respiratory failure, unspecified, unspecified whether with hypoxia or hypercapnia; J45.909 Unspecified asthma, uncomplicated; R06.02 Shortness of breath; R06.2 Wheezing; R05 Cough

== ENCOUNTER 2020-03-14 | Emergency (ER) | payer OTHER ==
[2020-03-14] MEDS ORDERED: AMLODIPINE BESY10 MG PO (08:55)
[2020-03-14] MEDS ORDERED: BUPROPION HCL150 MG PO (08:56)
[2020-03-14] MEDS ORDERED: CARVEDILOL25 MG PO (08:57)
[2020-03-14] MEDS ORDERED: FUROSEMIDE20 MG PO (08:57)
[2020-03-14] MEDS ORDERED: APRESOLINE25 MG/TAB PO (08:58)
[2020-03-14] MEDS ORDERED: METFORMIN500 M2 PO (08:59)
[2020-03-14] MEDS ORDERED: MIRTAZAPINE30 M1 PO (08:59)
[2020-03-14] MEDS ORDERED: PROAIR HFA108 MCG/AC IN (09:02)
[2020-03-14 09:47] LABS: URINE BILIRUBIN - DIPSTICK NEGATIVE (NEGATIVE); URINE BLOOD DIPSTICK NEGATIVE (NEGATIVE); URINE COLOR YELLOW; URINE GLUCOSE - DIPSTICK NEGATIVE (NEGATIVE); URINE KETONE NEGATIVE (NEGATIVE); URINE LEUK ESTERASE NEGATIVE (NEGATIVE); URINE NITRITE - DIPSTICK NEGATIVE (Negative); URINE PROTEIN - DIPSTICK NEGATIVE (NEG-TRACE); URINE SPECIFIC GRAVITY >=1.030; URINE UROBILINOGEN - DIPSTICK 0.2 E.U./dL (0.2)
[2020-03-14 09:50] LABS: ALBUMIN 4.4 g/dL (3.2-5.0); ALKALINE PHOSPHATASE 84 u/l (38-126); BILIRUBIN, TOTAL 0.8 mg/dL (0.0-1.4); BUN 33 mg/dL (7-17); BUN/CREATININE RATIO 25 (12-20 (CALC)); CHLORIDE 103 mmol/l (95-108); CREATININE 1.3 mg/dL (0.5-1.0); GFR 43 ML/MIN (>=60 (CALC)); GFR FOR AFR.AMER. 52 ML/MIN (>=60 (CALC)); POTASSIUM 4.9 mmol/l (3.5-5.1); SODIUM 135 mmol/l (137-146); TOTAL PROTEIN 7.9 g/dL (6.3-8.2)
[2020-03-14 09:52] LABS: BARBITURATES NEGATIVE (NEGATIVE); COCAINE NEGATIVE (NEGATIVE); METHADONE NEGATIVE (NEGATIVE); OXCYCODONE NEGATIVE (NEGATIVE); TETRAHYDROCANNABIONOL NEGATIVE (NEGATIVE); TRICYLIC ANTIDEPRESSANTS NEGATIVE (NEGATIVE)
[2020-03-14 09:52] LABS: HEMATOCRIT 40.3 % (37.0-47.0); HEMOGLOBIN 12.2 g/dl (12.0-16.0); IMMATURE GRANULOCYTES 0.3 % (0.0-5.0); MEAN CELL VOLUME 79.2 fL CALC (80.0-100.0); MEAN CORPUSCULAR HGB CONC 30.3 g/dL CAL (32.0-36.0); NEUT# 1.22 thou/uL (2.00-7.15); RED BLOOD COUNT 5.09 mill/uL (4.20-5.60); RED CELL DISTRI WIDTH 17.8 % (11.5-15.5)
[2020-03-14 09:53] LABS: ANION GAP 12 (6-22 (CALC)); CARBON DIOXIDE 25 mmol/l (22-30); SGOT/AST 21 u/l (14-36)
[2020-03-14] MEDS ORDERED: BENADRYL25 M1 PO (10:50)
== END 2020-03-14 11:40 | disposition home or self-care (01) ==
DX: T78.40XA Allergy, unspecified, initial encounter (principal); T50.905A Adverse effect of unspecified drugs, medicaments and biological substances, initial encounter; F41.9 Anxiety disorder, unspecified; I11.0 Hypertensive heart disease with heart failure; I50.9 Heart failure, unspecified; E11.9 Type 2 diabetes mellitus without complications; I48.91 Unspecified atrial fibrillation; I48.92 Unspecified atrial flutter; I25.10 Atherosclerotic heart disease of native coronary artery without angina pectoris; J44.9 Chronic obstructive pulmonary disease, unspecified; Z79.84 Long term (current) use of oral hypoglycemic drugs

== ENCOUNTER 2020-03-18 18:40 | Emergency (ER) | payer OTHER ==
[~2020-03-18 18:40] MED LIST changes: +AMLODIPINE BESY10 MG PO; +APRESOLINE25 MG/TAB PO; +BENADRYL25 M1 PO; +BUPROPION HCL150 MG PO; +CARVEDILOL25 MG PO; +METFORMIN500 M2 PO; +PROAIR HFA108 MCG/AC IN
[2020-03-18 19:16] VITALS: BP 116/89
[2020-03-18] MEDS ORDERED: FLOXIN OTIC0.3 % AS ×2 (19:16)
[2020-03-18] MEDS ORDERED: LORTAB 1010 MG PO (19:16)
[2020-03-18] MEDS ORDERED: AMOXICILLIN875 MG PO (19:16)
== END 2020-03-18 19:22 | disposition home or self-care (01) ==
LOC: ED 18:40
DX: H66.92 Otitis media, unspecified, left ear (principal); S00.412A Abrasion of left ear, initial encounter; S00.462A Insect bite (nonvenomous) of left ear, initial encounter; T23.221A Burn of second degree of single right finger (nail) except thumb, initial encounter; I11.0 Hypertensive heart disease with heart failure; I50.9 Heart failure, unspecified; E11.9 Type 2 diabetes mellitus without complications; J44.9 Chronic obstructive pulmonary disease, unspecified; I48.91 Unspecified atrial fibrillation; I25.10 Atherosclerotic heart disease of native coronary artery without angina pectoris; W57.XXXA Bitten or stung by nonvenomous insect and other nonvenomous arthropods, initial encounter; X58.XXXA Exposure to other specified factors, initial encounter; X08.8XXA Exposure to other specified smoke, fire and flames, initial encounter; Z79.84 Long term (current) use of oral hypoglycemic drugs

== ENCOUNTER 2020-06-13 18:00 | Observation (INO) | payer OTHER ==
[~2020-06-13] VITALS: Ht 162.6 cm; Wt 76.0 kg
[~2020-06-13 18:00] MED LIST changes: +AMOXICILLIN875 MG PO; +FLOXIN OTIC0.3 % AS; +LORTAB 1010 MG PO
--- NOTE | 2020-06-13 18:00 | NUR ---
PT TO ROOM VIA EMS
--- NOTE | 2020-06-13 18:25 | NUR ---
CARDIZEM PUSH GIVEN PER MAR; MONITORING DEVICES IN PLACE; WILL CONTINUE TO MONITOR
[2020-06-13 18:34] LABS: HEMATOCRIT 40.4 % (37.0-47.0); HEMOGLOBIN 11.6 g/dl (12.0-16.0); IMMATURE GRANULOCYTES 0.4 % (0.0-5.0); MEAN CELL VOLUME 77.1 fL CALC (80.0-100.0); MEAN CORPUSCULAR HGB 22.1 pG CALC (26.0-32.0); MEAN CORPUSCULAR HGB CONC 28.7 g/dL CAL (32.0-36.0); NEUT# 4.33 thou/uL (2.00-7.15); RED BLOOD COUNT 5.24 mill/uL (4.20-5.60); RED CELL DISTRI WIDTH 17.9 % (11.5-15.5)
[2020-06-13 18:52] LABS: ALBUMIN 4.7 g/dL (3.2-5.0); CREATININE 1.9 mg/dL (0.5-1.0); TOTAL PROTEIN 8.7 g/dL (6.3-8.2)
[2020-06-13 19:02] LABS: POTASSIUM 3.3 mmol/l (3.5-5.1)
--- NOTE | 2020-06-13 19:10 | NUR ---
REPORT GIVEN TO IVAN ALBERTO
[2020-06-13 19:22] LABS: TSH, 3RD GENERATION 1.49 uIU/mL (0.47 - 4.68)
--- NOTE | 2020-06-13 20:30 | NUR ---
PATIENT ABLE TO AMBULATE INDEPENDENTLY TO THE BATHROOM, NO C/O PAIN OR DISCOMFORT, NO S/S OF DISTRESS NOTED, RESPIRATIONS EVEN AND UNLABORED.
--- NOTE | 2020-06-13 21:16 | NUR ---
PATIENT RESTING QUIETLY WITH NO C/O PAIN OR DISCOMFORT, NO S/S OF DISTRESS NOTED, RESPIRATIONS EVEN AND UNLABORED, AWAITING INPATIENT BED.
--- NOTE | 2020-06-13 22:41 | NUR ---
HAND OFF REPORT GIVEN TO ANGIE, PATIENT TO INPATIENT ROOM.
[2020-06-13 22:50] VITALS: BP 170/95
--- NOTE | 2020-06-13 22:50 | NUR ---
PT TO ROOM VIA WC ACCOMPANIED BY NURSING INDEX CLERK; PT AMBULATORY TO BED WITH STAND BY ASSIST; PT A/O X3; PT C/O PAIN TO BILAT LEGS 08/24, WILL CALL MD FOR ORDERS; PT STATES WEAKNESS AND "HEART RACING" SINCE 06/11/20. PT STATES ENCOUNTER WITH [facility] TODAY MADE IT WORSE; PT ON RA, LUNGS CLEAR THROUGHOUT; #20 LFA WITHOUT REDNESS OR EDEMA NOTED; CARDIZEM GTT AT 5MG/HR ORDERED; PT AFLUTTER 96 ON OPHTHALMIC ASST; PT REQUESTING SNACK PROVIDED; PT ORIENTED TO ROOM AND CALL SYSTEM; WILL CONTINUE TO MONITOR.
--- NOTE | 2020-06-13 22:56 | NUR ---
PATIENT ESCORTED TO INPATIENT ROOM BY VINOD IN WHEELCHAIR, NO C/O PAIN, NO S/S OF DISTRESS, RESPIRATIONS EVEN AND UNLABORED.
[2020-06-13 23:15] VITALS: BP 192/93
--- NOTE | 2020-06-13 23:20 | NUR ---
ASKED PT ABOUT HOME MEDS; PT STATES IT SHOULD BE ON FILE; ASKED PT DID SHE SUPPLY A LIST OF MEDS TO ED NURSE, PT STATES NO; ASKED PT IF ANYONE ASKED HER FOR A LIST, AGAIN NO; ASKED PT IF SHE KNEW HER HOME MEDS, SHE STATS NO, SHE HAS A LIST AT HOME; WILL CALL A FAMILY MEMBER IN THE AM TO BRING LIST IN; WILL CONTINUE TO MONITOR.
[2020-06-13 23:30] VITALS: BP 171/10
--- NOTE | 2020-06-13 23:40 | NUR ---
PT MEDICATED ORDERED FOR C/O PAIN TO BILAT LEGS AND BP 171/101 ORDERED; PT OFFERS NO OTHER COMPLAINTS AT THIS TIME; CALL CESAR WITHIN REACH; WILL CONTINUE TO MONITOR.
[2020-06-13 23:45] VITALS: BP 167/85
[2020-06-14] VITALS (16 sets, daily range): BP systolic 135–187; BP diastolic 72–97
--- NOTE | 2020-06-14 02:01 | NUR ---
PT ASSISTED TO BSC; VOIDS WELL; NO COMPLAINTS VOICED AT THIS TIME; CALL CESAR WITHIN REACH; WILL CONTINUE TO MONITOR
--- NOTE | 2020-06-14 04:00 | NUR ---
PT RESTING WITH EYES CLOSED; NO S/SX OF DISTRESS NOTED; CALL CESAR WITHIN REACH; WILL CONTINUE TO MONITOR.
--- NOTE | 2020-06-14 04:45 | NUR ---
HEART RATE 70s TO 80s, AFLUTTER; CARDIZEM GTT STOPPED AT THIS TIME; NO S/SX OF DISTRESS NOTED; WILL CONTINUE TO MONITOR.
--- NOTE | 2020-06-14 05:31 | NUR ---
PT ASSISTED TO BSC; VOIDS WITHOUT DIFFICULTY; NO COMPLAINTS VOICED AT THIS TIME; WILL CONTINUE TO MONITOR.
--- NOTE | 2020-06-14 06:45 | NUR ---
REPORT RECEIVED FROM GALEN LOVE. CARE ASSUMED.
--- NOTE | 2020-06-14 07:30 | NUR ---
PT RESTING IN BED WITH EYES CLOSED. AROUSES TO VERBAL STIMULI. PT IS ALERT AND ORIENTED X3. SHIFT ASSESSMENT COMPLETED AT THIS TIME. IV PATENT X1. CALL LIGHT IN REACH. WILL CONTINUE TO MONITOR.
--- NOTE | 2020-06-14 08:13 | NUR ---
DR CHANG AT BEDSIDE
--- NOTE | 2020-06-14 08:28 | NUR ---
SPOKE WITH DR CHANG REGARDING NO MED REC COMPLETED. ENTERED MEDS PER CLAIMS HISTORY.
--- NOTE | 2020-06-14 08:50 | NUR ---
PT ASSISTED UP TO BSC TO VOID URINE SPECIMEN COLLECTED AND SENT TO LAB.
--- NOTE | 2020-06-14 09:15 | NUR ---
NEPHEW CALLED CONNECTED TO [facility] PHONE. ENCOURAGE PT TO HAVE SOMEONE BRING CELLPHONE AND MEDICATION LIST
[2020-06-14 09:33] LABS: URINE BLOOD DIPSTICK NEGATIVE (NEGATIVE); URINE COLOR YELLOW; URINE GLUCOSE - DIPSTICK NEGATIVE (NEGATIVE); URINE KETONE 40 mg/dL (NEGATIVE); URINE LEUK ESTERASE NEGATIVE (NEGATIVE); URINE NITRITE - DIPSTICK NEGATIVE (Negative); URINE PH 6.5 (4.5-8.0); URINE PROTEIN - DIPSTICK TRACE mg/dL (NEG-TRACE)
[2020-06-14 09:39] LABS: URINE BILIRUBIN - DIPSTICK NEGATIVE (NEGATIVE)
--- NOTE | 2020-06-14 10:00 | NUR ---
PT RESTING IN BED WATCHING TV. RESP ARE EVEN AND UNLABORED. NO DISTRESS NOTED. CALL LIGHT IN REACH. WILL CONTINUE TO MONITOR.
--- NOTE | 2020-06-14 11:30 | NUR ---
PT SET UP FOR NOON MEAL.
--- NOTE | 2020-06-14 12:38 | NUR ---
PT TALKING ON PHONE WITH NEPHEW. VS REMAIN STABLE AT THIS TIME. RESP ARE EVEN AND UNLABORED. NO DISTRESS NOTED CALL LIGHT IN REACH. WILL CONTINUE TO MONTIOR.
--- NOTE | 2020-06-14 14:30 | NUR ---
PT YELLING AND CRYING IN ROOM. THIS NURSE INTO ROOM TO SEE WHAT IS WRONG PT STATES THAT HER NEPHEW WON'T ANSWER THE PHONE AND SHE THINKS HE STOLE ALL HER JEWELREY AND GOMEZ AND DOES NOT WANT HIM TO PAWN HER JEWLREY AND THAT SHE NEEDS TO LEAVE. EXPLAINED THAT THE DOCTOR HAS NOT RELASED HER AND THAT SHE WOULD BE LEAVING AGAINST MEDICAL ADVICE. Patient decides to leave AMA. Multiple attempts made to ecourage patient to remain here for continued treatment. Explained to patient all risks of leaving against medical advice including . Pt verbalized understanding of all risks. Pt also encouraged to return to [facility] at any time, especially if symptoms continue or become worse. Pt verbalized understanding. IV site discontinued, cath intact. No edema , no redness, voices no discomfort.
--- NOTE | 2020-06-14 14:40 | NUR ---
Discharge instructions given. Patient verbalizes understanding of same. Discharged in stable condition via Ambulatory to Against Medical Advice with SELF. All belongings sent with pt.
== END 2020-06-14 14:40 | disposition left against medical advice (07) ==
LOC: ED 18:00 → ED-I 20:35 → ED 20:48 → ICU 20:49 → ED-I 20:49 → ICU 21:14
PROVIDERS: Family Medicine; ADMIT Internal Medicine; ATTEND Internal Medicine
DX: I48.0 Paroxysmal atrial fibrillation (principal); N17.9 Acute kidney failure, unspecified; I13.0 Hypertensive heart and chronic kidney disease with heart failure and stage 1 through stage 4 chronic kidney disease, or unspecified chronic kidney disease; E11.22 Type 2 diabetes mellitus with diabetic chronic kidney disease; N18.9 Chronic kidney disease, unspecified; I50.9 Heart failure, unspecified; I25.10 Atherosclerotic heart disease of native coronary artery without angina pectoris; I34.0 Nonrheumatic mitral (valve) insufficiency; J44.9 Chronic obstructive pulmonary disease, unspecified; I42.9 Cardiomyopathy, unspecified; J45.909 Unspecified asthma, uncomplicated; Z79.01 Long term (current) use of anticoagulants; Z79.84 Long term (current) use of oral hypoglycemic drugs; Z20.828 Contact with and (suspected) exposure to other viral communicable diseases

== ENCOUNTER 2020-06-25 20:57 | Emergency (ER) | payer OTHER ==
[~2020-06-25] VITALS: Ht 162.6 cm; Wt 94.1 kg
[2020-06-25 22:13] LABS: HEMATOCRIT 39.1 % (37.0-47.0); HEMOGLOBIN 11.3 g/dl (12.0-16.0); IMMATURE GRANULOCYTES 0.3 % (0.0-5.0); MEAN CELL VOLUME 76.1 fL CALC (80.0-100.0); MEAN CORPUSCULAR HGB CONC 28.9 g/dL CAL (32.0-36.0); NEUT# 3.59 thou/uL (2.00-7.15); RED BLOOD COUNT 5.14 mill/uL (4.20-5.60); RED CELL DISTRI WIDTH 17.9 % (11.5-15.5)
[2020-06-25 22:40] LABS: ALBUMIN 4.6 g/dL (3.2-5.0); ALKALINE PHOSPHATASE 82 u/l (38-126); ANION GAP 12 (6-22 (CALC)); BILIRUBIN, TOTAL 1.6 mg/dL (0.0-1.4); BUN 15 mg/dL (7-17); CARBON DIOXIDE 26 mmol/l (22-30); CHLORIDE 104 mmol/l (95-108); SGOT/AST 56 u/l (14-36); SODIUM 138 mmol/l (137-146); TOTAL PROTEIN 8.6 g/dL (6.3-8.2)
[2020-06-25 22:44] LABS: BUN/CREATININE RATIO 17 (12-20 (CALC)); CREATININE 0.9 mg/dL (0.5-1.0); GFR > 60 ML/MIN (>=60 (CALC)); GFR FOR AFR.AMER. > 60 ML/MIN (>=60 (CALC)); POTASSIUM 4.2 mmol/l (3.5-5.1)
[2020-06-25 22:51] LABS: MYOGLOBIN 25 ng/mL (0 - 62)
[2020-06-25 22:53] LABS: URINE BILIRUBIN - DIPSTICK NEGATIVE (NEGATIVE); URINE BLOOD DIPSTICK NEGATIVE (NEGATIVE); URINE COLOR YELLOW; URINE GLUCOSE - DIPSTICK NEGATIVE (NEGATIVE); URINE KETONE NEGATIVE (NEGATIVE); URINE LEUK ESTERASE NEGATIVE (NEGATIVE); URINE NITRITE - DIPSTICK NEGATIVE (Negative); URINE PROTEIN - DIPSTICK NEGATIVE (NEG-TRACE); URINE SPECIFIC GRAVITY 1.015
[2020-06-26 03:25] VITALS: BP 158/83
== END 2020-06-26 03:25 | DRG 313 ==
LOC: ED 20:57
PROVIDERS: Emergency Medicine
DX: R07.89 Other chest pain (principal); I13.0 Hypertensive heart and chronic kidney disease with heart failure and stage 1 through stage 4 chronic kidney disease, or unspecified chronic kidney disease; I50.9 Heart failure, unspecified; E11.22 Type 2 diabetes mellitus with diabetic chronic kidney disease; N18.9 Chronic kidney disease, unspecified; I42.9 Cardiomyopathy, unspecified; I48.20 Chronic atrial fibrillation, unspecified; I25.10 Atherosclerotic heart disease of native coronary artery without angina pectoris; J44.9 Chronic obstructive pulmonary disease, unspecified; Z79.84 Long term (current) use of oral hypoglycemic drugs; Z79.01 Long term (current) use of anticoagulants

== ENCOUNTER 2020-08-03 06:34 | Emergency (ER) | payer OTHER ==
[~2020-08-03] VITALS: Ht 162.6 cm; Wt 68.0 kg
[2020-08-03 07:19] LABS: HEMATOCRIT 32.7 % (37.0-47.0); HEMOGLOBIN 9.8 g/dl (12.0-16.0); MEAN CELL VOLUME 75.9 fL CALC (80.0-100.0); MEAN CORPUSCULAR HGB 22.7 pG CALC (26.0-32.0); RED BLOOD COUNT 4.31 mill/uL (4.20-5.60)
[2020-08-03 07:29] LABS: NEUT# 6.5 thou/uL (2.00-7.15)
[2020-08-03 07:30] LABS: ALBUMIN 4.1 g/dL (3.2-5.0); ALKALINE PHOSPHATASE 87 u/l (38-126); AMYLASE 66 u/l (30-110); ANION GAP 13 (6-22 (CALC)); BILIRUBIN, TOTAL 1.3 mg/dL (0.0-1.4); BUN 20 mg/dL (7-17); BUN/CREATININE RATIO 17 (12-20 (CALC)); CARBON DIOXIDE 23 mmol/l (22-30); CHLORIDE 106 mmol/l (95-108); CREATININE 1.2 mg/dL (0.5-1.0); GFR 47 ML/MIN (>=60 (CALC)); GFR FOR AFR.AMER. 56 ML/MIN (>=60 (CALC)); LIPASE 109 u/l (23-300); POTASSIUM 4.1 mmol/l (3.5-5.1); SGOT/AST 57 u/l (14-36); SODIUM 138 mmol/l (137-146)
[2020-08-03 07:34] LABS: INTERNATIONAL NORMALIZED RATIO 1.2 RATIO (0.7-1.3); PROTHROMBIN TIME 11.9 SECONDS (9.0-12.5)
[2020-08-03 07:42] LABS: MYOGLOBIN 29 ng/mL (0 - 62)
[2020-08-03 08:00] LABS: C-REACTIVE PROTEIN 4.4 mg/dL (0-0.9)
[2020-08-03 09:22] LABS: URINE BILIRUBIN - DIPSTICK NEGATIVE (NEGATIVE); URINE BLOOD DIPSTICK SMALL (NEGATIVE); URINE COLOR YELLOW; URINE GLUCOSE - DIPSTICK 100 mg/dL (NEGATIVE); URINE KETONE NEGATIVE (NEGATIVE); URINE LEUK ESTERASE NEGATIVE (NEGATIVE); URINE NITRITE - DIPSTICK NEGATIVE (Negative); URINE PROTEIN - DIPSTICK 100 mg/dL (NEG-TRACE); URINE UROBILINOGEN - DIPSTICK 0.2 E.U./dL (0.2)
[2020-08-03 09:23] LABS: URINE EPITHELIAL CELLS MODERATE EPI/hpf (0-FEW)
[2020-08-03 09:51] VITALS: BP 145/99
== END 2020-08-03 09:48 | disposition short-term general hospital (02) ==
LOC: ED 06:34
PROVIDERS: Emergency Medicine; Family Medicine
DX: I11.0 Hypertensive heart disease with heart failure (principal); I50.9 Heart failure, unspecified; I48.91 Unspecified atrial fibrillation; I16.0 Hypertensive urgency; J44.0 Chronic obstructive pulmonary disease with (acute) lower respiratory infection; J18.9 Pneumonia, unspecified organism; J96.00 Acute respiratory failure, unspecified whether with hypoxia or hypercapnia; R07.9 Chest pain, unspecified; E11.9 Type 2 diabetes mellitus without complications; I25.10 Atherosclerotic heart disease of native coronary artery without angina pectoris; Z20.828 Contact with and (suspected) exposure to other viral communicable diseases
CPT/HCPCS: J1644

== ENCOUNTER 2020-08-10 20:27 | Emergency (ER) | payer OTHER ==
[~2020-08-10] VITALS: Ht 162.6 cm; Wt 68.0 kg
[2020-08-10 21:03] LABS: HEMATOCRIT 34.9 % (37.0-47.0); IMMATURE GRANULOCYTES 0.7 % (0.0-5.0); MEAN CELL VOLUME 76.4 fL CALC (80.0-100.0); MEAN CORPUSCULAR HGB 21.9 pG CALC (26.0-32.0); MEAN CORPUSCULAR HGB CONC 28.7 g/dL CAL (32.0-36.0); NEUT# 5.29 thou/uL (2.00-7.15); RED BLOOD COUNT 4.57 mill/uL (4.20-5.60); RED CELL DISTRI WIDTH 19.8 % (11.5-15.5)
[2020-08-10 21:31] VITALS: BP 114/76
[2020-08-10 21:39] LABS: ALBUMIN 4.3 g/dL (3.2-5.0); BILIRUBIN, TOTAL 0.7 mg/dL (0.0-1.4); CREATININE 1.5 mg/dL (0.5-1.0); POTASSIUM 4.5 mmol/l (3.5-5.1); TOTAL PROTEIN 7.9 g/dL (6.3-8.2)
== END 2020-08-10 21:50 | disposition home or self-care (01) ==
LOC: ED 20:27
PROVIDERS: Family Medicine
DX: T82.847A Pain due to cardiac prosthetic devices, implants and grafts, initial encounter (principal); E11.9 Type 2 diabetes mellitus without complications; I10 Essential (primary) hypertension; I48.91 Unspecified atrial fibrillation; J44.9 Chronic obstructive pulmonary disease, unspecified; I25.10 Atherosclerotic heart disease of native coronary artery without angina pectoris; Y83.1 Surgical operation with implant of artificial internal device as the cause of abnormal reaction of the patient, or of later complication, without mention of misadventure at the time of the procedure; Z95.0 Presence of cardiac pacemaker

== ENCOUNTER 2020-08-15 16:30 | Emergency (ER) | payer OTHER ==
[~2020-08-15] VITALS: Ht 162.6 cm; Wt 75.0 kg
[2020-08-15] MEDS ORDERED: TRAMADOL HYDROC50 M1 PO (17:18)
[2020-08-15 17:53] VITALS: BP 148/80
== END 2020-08-15 17:53 | disposition home or self-care (01) ==
LOC: ED 16:30
DX: T82.847A Pain due to cardiac prosthetic devices, implants and grafts, initial encounter (principal); I10 Essential (primary) hypertension; E11.9 Type 2 diabetes mellitus without complications; I25.10 Atherosclerotic heart disease of native coronary artery without angina pectoris; J44.9 Chronic obstructive pulmonary disease, unspecified; Y83.1 Surgical operation with implant of artificial internal device as the cause of abnormal reaction of the patient, or of later complication, without mention of misadventure at the time of the procedure; Z95.0 Presence of cardiac pacemaker

== ENCOUNTER 2020-08-25 14:10 | Emergency (ER) | payer OTHER ==
[~2020-08-25] VITALS: Ht 162.6 cm; Wt 63.6 kg
[~2020-08-25 14:10] MED LIST changes: +TRAMADOL HYDROC50 M1 PO
[2020-08-25 14:56] LABS: HEMOGLOBIN 8.2 g/dl (12.0-16.0); IMMATURE GRANULOCYTES 0.6 % (0.0-5.0); MEAN CELL VOLUME 73.2 fL CALC (80.0-100.0); MEAN CORPUSCULAR HGB 21.8 pG CALC (26.0-32.0); MEAN CORPUSCULAR HGB CONC 29.7 g/dL CAL (32.0-36.0); NEUT# 6.77 thou/uL (2.00-7.15); RED BLOOD COUNT 3.77 mill/uL (4.20-5.60); RED CELL DISTRI WIDTH 19.6 % (11.5-15.5)
[2020-08-25 14:57] LABS: HEMATOCRIT 27.6 % (37.0-47.0)
[2020-08-25] MEDS ORDERED: ROSUVASTATIN CA10 MG PO (15:03)
[2020-08-25] MEDS ORDERED: ELIQUIS5 MG PO (15:03)
[2020-08-25] MEDS ORDERED: DULERA1 AE1 IN (15:03)
[2020-08-25] MEDS ORDERED: SPIRONOLACT25 MG PO (15:03)
[2020-08-25] MEDS ORDERED: METFORMIN500 M2 PO (15:03)
[2020-08-25] MEDS ORDERED: VENTOLIN H108 MCG/AC IN (15:03)
[2020-08-25] MEDS ORDERED: LISINOPRIL40 MG PO (15:03)
[2020-08-25] MEDS ORDERED: IPRATROPIU0.5 MG/3 M IN (15:04)
[2020-08-25] MEDS ORDERED: PRILOSEC20 MG/CAP PO (15:04)
[2020-08-25] MEDS ORDERED: HYDROMORPHON8 MG PO (15:04)
[2020-08-25] MEDS ORDERED: CELEBREX200 M1 PO (15:13)
[2020-08-25] MEDS ORDERED: BUPROPION HCL150 M2 PO (15:15)
[2020-08-25] MEDS ORDERED: CARTIA XT300 MG PO (15:15)
[2020-08-25 15:47] LABS: BILIRUBIN, TOTAL 0.8 mg/dL (0.0-1.4); CREATININE 1.2 mg/dL (0.5-1.0); POTASSIUM 4.7 mmol/l (3.5-5.1)
[2020-08-25 15:59] LABS: MYOGLOBIN 22 ng/mL (0 - 62)
[2020-08-25 18:10] VITALS: BP 141/74
== END 2020-08-25 18:10 | disposition short-term general hospital (02) ==
LOC: ED 14:10
PROVIDERS: Emergency Medicine
DX: I31.3 Pericardial effusion (noninflammatory) (principal); J18.9 Pneumonia, unspecified organism; J44.0 Chronic obstructive pulmonary disease with (acute) lower respiratory infection; I10 Essential (primary) hypertension; E11.9 Type 2 diabetes mellitus without complications; I48.91 Unspecified atrial fibrillation; I25.10 Atherosclerotic heart disease of native coronary artery without angina pectoris; Z79.84 Long term (current) use of oral hypoglycemic drugs; Z95.0 Presence of cardiac pacemaker

== ENCOUNTER 2020-09-28 10:10 | Observation (INO) | payer OTHER ==
[~2020-09-28] VITALS: Ht 162.6 cm; Wt 66.0 kg
[~2020-09-28 10:10] MED LIST changes: +BUPROPION HCL150 M2 PO; +CARTIA XT300 MG PO; +CELEBREX200 M1 PO; +DULERA1 AE1 IN; +IPRATROPIU0.5 MG/3 M IN; +LISINOPRIL40 MG PO; +PRILOSEC20 MG/CAP PO; +ROSUVASTATIN CA10 MG PO; +SPIRONOLACT25 MG PO; +VENTOLIN H108 MCG/AC IN
--- NOTE | 2020-09-28 10:10 | NUR ---
TO ROOM 9 VIA EMS.
--- NOTE | 2020-09-28 10:30 | NUR ---
PATIENT SETTLED, PLAN OF CARE REVIEWED.
[2020-09-28] MEDS ORDERED: FUROSEMIDE20 MG PO (11:14)
[2020-09-28] MEDS ORDERED: GLIPIZIDE5 MG PO (11:14)
[2020-09-28] MEDS ORDERED: K-TABS10 MEQ PO (11:15)
--- NOTE | 2020-09-28 11:30 | NUR ---
PATIENT RESTING QUIETLY. CALM. CALL CESAR WITH IN REACH.
[2020-09-28 11:32] LABS: HEMATOCRIT 27.3 % (37.0-47.0); HEMOGLOBIN 8.1 g/dl (12.0-16.0); IMMATURE GRANULOCYTES 0.7 % (0.0-5.0); MEAN CELL VOLUME 72.2 fL CALC (80.0-100.0); MEAN CORPUSCULAR HGB 21.4 pG CALC (26.0-32.0); MEAN CORPUSCULAR HGB CONC 29.7 g/dL CAL (32.0-36.0); NEUT# 7.01 thou/uL (2.00-7.15); RED BLOOD COUNT 3.78 mill/uL (4.20-5.60); RED CELL DISTRI WIDTH 21.3 % (11.5-15.5)
[2020-09-28 11:50] LABS: ALBUMIN 3.6 g/dL (3.2-5.0); ALKALINE PHOSPHATASE 136 u/l (38-126); BUN 16 mg/dL (7-17); BUN/CREATININE RATIO 19 (12-20 (CALC)); CARBON DIOXIDE 21 mmol/l (22-30); CHLORIDE 101 mmol/l (95-108); CREATININE 0.8 mg/dL (0.5-1.0); GFR > 60 ML/MIN (>=60 (CALC)); GFR FOR AFR.AMER. > 60 ML/MIN (>=60 (CALC)); SGOT/AST 26 u/l (14-36); SODIUM 132 mmol/l (137-146); TOTAL PROTEIN 7.6 g/dL (6.3-8.2)
[2020-09-28 11:53] LABS: ANION GAP 15 (6-22 (CALC)); BILIRUBIN, TOTAL 1.2 mg/dL (0.0-1.4); POTASSIUM 5.3 mmol/l (3.5-5.1)
[2020-09-28 12:02] LABS: MYOGLOBIN 21 ng/mL (0 - 62)
--- NOTE | 2020-09-28 12:21 | NUR ---
PT AMBULATED BATHROOM WITH STEADY GAIT.
--- NOTE | 2020-09-28 12:26 | NUR ---
AMBULATED TO BATHROOM WITH STEADY GAIT, PT TOLERATED ACTIVITY WITHOUT C/O CHEST PAIN OR SOB.
[2020-09-28 12:57] LABS: URINE BILIRUBIN - DIPSTICK NEGATIVE (NEGATIVE); URINE BLOOD DIPSTICK TRACE-LYSED (NEGATIVE); URINE COLOR YELLOW; URINE GLUCOSE - DIPSTICK 250 mg/dL (NEGATIVE); URINE KETONE NEGATIVE (NEGATIVE); URINE LEUK ESTERASE NEGATIVE (NEGATIVE); URINE NITRITE - DIPSTICK NEGATIVE (Negative); URINE PROTEIN - DIPSTICK 30 mg/dL (NEG-TRACE); URINE UROBILINOGEN - DIPSTICK 0.2 E.U./dL (0.2)
[2020-09-28 12:59] LABS: URINE EPITHELIAL CELLS MODERATE EPI/hpf (0-FEW); URINE RBC 0-2 RBC/hpf (0-5)
--- NOTE | 2020-09-28 14:56 | NUR ---
up to bedside commode with assistance.
--- NOTE | 2020-09-28 16:00 | NUR ---
MEDICATED WITH TYLENOL 650MG PO FOR C/O 9/10 CHEST PAIN.
--- NOTE | 2020-09-28 16:43 | NUR ---
PATIENT AWARE F IMPENDING ADMISSION.
--- NOTE | 2020-09-28 16:57 | NUR ---
CALLED DR CHANG REGARDING INABILITY TO GET IV SITE FOR CTA, ORDER FOR CT WITHOUT CONTRAST GIVEN.
--- NOTE | 2020-09-28 16:58 | NUR ---
REPORT TO IVA LOVE IN SBAR FORMAT.
--- NOTE | 2020-09-28 17:07 | NUR ---
TO RADIOLOGY VIA STRETCHER, THEN TO ROOM 279 FOR ADMISSION. ALL BELONGINGS WITH PT.
[2020-09-28 17:52] VITALS: BP 156/77
--- NOTE | 2020-09-28 18:28 | NUR ---
7076 REPORT WAS RECEIVED FROM TIFFANIE. PT CAME FROM CT VIA [employer]. PT AMBULATED TO THE BED. PLAN CHECKER IN ROOM TO OBTAIN VS. ASSESSMENT DONE. PT IS A&OX3. TELE #[id number]. TELE READING SR 82 IVCD PER ED. RESPS EVEN AND UNLABORED. PT DENIES PAIN AT THIS TIME. SAFETY PRECAUTIONS REINFORCED CALL LIGHT IN REACH.
[2020-09-28 19:30] VITALS: BP 145/84
--- NOTE | 2020-09-28 19:37 | NUR ---
PHYSICAL ASSESMENT COMPLETE. PT CURRENTLY DENIES PAIN OR DISCOMFORT. SCHEDULED MEDICATIONS AND PRN MEDICATION ADMINISTERED, SEE E-MAR. PT DENIES ANY NEEDS AT THIS TIME. PLAN OF CARE REVIEWED, PT DENIES QUESTIONS, VERBALIZES UNDERSTANDING. ITEMS WITHIN REACH, BED LOCKED IN LOW POSITION W/ BEDRAILS UP X2. CALL CESAR WITHIN REACH, AGREES TO CALL PRN.
--- NOTE | 2020-09-28 23:38 | NUR ---
PT LAYING IN BED WITH EYES CLOSED, APPEARS TO BE SLEEPING, APPEARS COMFORTABLE AND IN NO DISTRESS. RESPIRATIONS REGULAR AND UNLABORED. ITEMS REMAIN WITHIN REACH, CALL CESAR REMAINS WITHIN REACH. BED REMAINS LOCKED AND IN LOW POSITION WITH BEDRAILS UP X2. WILL CONTINUE TO MONITOR.
[2020-09-29] VITALS (7 sets, daily range): BP systolic 125–143; BP diastolic 76–92
--- NOTE | 2020-09-29 04:07 | NUR ---
PT RESTING IN BED, NO SIGNS OF DISTRESS NOTED, RESP EVEN AND UNLABORED. PT VOICES NO NEEDS OR COMPLAINTS AT THIS TIME. CALL LIGHT IN REACH,CONTINUE TO MONITOR.
--- NOTE | 2020-09-29 12:24 | NUR ---
PT CONSENTED TO PNEUMONIA VACCINE AT CURRENT VISIT. PT PREVIOSLY RECEIVED [id number] VACCINE 01/07/2018. NOT A CANDIDATE FOR VACCINE AT THIS TIME.
[2020-09-30] VITALS: BP 126/80
[2020-09-30 04:00] VITALS: BP 135/86
[2020-09-30 05:52] LABS: HEMATOCRIT 29.8 % (37.0-47.0); HEMOGLOBIN 8.6 g/dl (12.0-16.0); IMMATURE GRANULOCYTES 1.2 % (0.0-5.0); MEAN CELL VOLUME 72.7 fL CALC (80.0-100.0); MEAN CORPUSCULAR HGB CONC 28.9 g/dL CAL (32.0-36.0); NEUT# 2.94 thou/uL (2.00-7.15); RED BLOOD COUNT 4.1 mill/uL (4.20-5.60); RED CELL DISTRI WIDTH 21.5 % (11.5-15.5)
[2020-09-30 06:21] LABS: ALBUMIN 3.4 g/dL (3.2-5.0); ALKALINE PHOSPHATASE 127 u/l (38-126); ANION GAP 17 (6-22 (CALC)); BUN 15 mg/dL (7-17); BUN/CREATININE RATIO 15 (12-20 (CALC)); CARBON DIOXIDE 25 mmol/l (22-30); CHLORIDE 100 mmol/l (95-108); GFR 58 ML/MIN (>=60 (CALC)); GFR FOR AFR.AMER. > 60 ML/MIN (>=60 (CALC)); POTASSIUM 4.6 mmol/l (3.5-5.1); SGOT/AST 23 u/l (14-36); SODIUM 137 mmol/l (137-146); TOTAL PROTEIN 7.2 g/dL (6.3-8.2)
[2020-09-30 06:24] LABS: BILIRUBIN, TOTAL 0.6 mg/dL (0.0-1.4)
[2020-09-30 07:50] VITALS: BP 131/84
--- NOTE | 2020-09-30 07:50 | NUR ---
ASSESSMENT IS COMPLTED: IV SITE IS FREE FROM REDNESS OR EDEMA. HR IS REG,PULSES ARE STRONG X4, ABD IS SOFT WITH ACTIVE BS. BREATH SOUNDS ARE CLEAR BILATERALLY. TELE MONITOR IN PLACE. CHANGED DIRECTIONS ON HER BACK. CONTINUE TO OBSERVE AND MONITOR.
--- NOTE | 2020-09-30 12:15 | NUR ---
PT IS RELAXING IN BED WITH NO DISTRESS NOTED. HAD A CXR COMPLETED. VIA WC. WITH STAFF.
[2020-09-30 15:35] VITALS: BP 157/93
--- NOTE | 2020-09-30 16:15 | NUR ---
PT IS RELAXING ON THE SIDE OF THE BED. C/O HER "IV BURNING" WHILE GETTING ZITHROMAX. INFORMED THE ARPN
[2020-09-30 19:35] VITALS: BP 145/94
--- NOTE | 2020-09-30 20:00 | NUR ---
PATIENT RESTING IN BED-C/O CHEST PAIN-MEDICATED WITH LORTAB 5/325MG PO FOR PAIN. PATIENT ALERT AND ORIENTEDX3. PATIENT IS QUITE EMOTIONAL AT TIMES. SALINE LOCK INTACT TO RIGHT THUMB. PATIENT WITH C/O OF PAIN AT THIS SITE. WILL TRY TO RESTART NEW SITE. TELE MONITOR IN PLACE. SAFETY PRECAUTIONS REINFORCED. CALL LIGHT IN REACH, WILL CONT TO MONITOR.
--- NOTE | 2020-09-30 21:00 | NUR ---
PATIENT STILL C/O PAIN-MEDICATED WITH TORADOL 15MG IVP AND MEDICATED FOR SLEEP WITH SONATA 5MG FOR SLEEP. ATTEMPT MADE TO START NEW IV SITE WITHOUT SUCCESS. CALL LIGHT IN REACH. WILL CONT TO MONITOR.
[2020-09-30 23:10] VITALS: BP 152/86
--- NOTE | 2020-10-01 | NUR ---
PATIENT RESTING IN BED-APPEARS SLEEPING WITH EYES CLOSED. RFESP ARE EVEN AND UNLABORED. TELE MONITOR IN PLACE. CALL LIGHT IN REACH, WILL CONT TO MONITOR.
[2020-10-01 04:20] VITALS: BP 104/89
--- NOTE | 2020-10-01 06:37 | NUR ---
PATIENT APPEARS SLEEPING AT THIS TIME WITH EYES CLOSED. RESPS ARE EVEN AND UNLABORED. TELE MONITOR IN PLACE. CALL LIGHT IN REACH. RIGHT THUMB IV SITE REMAINS SLAINE LOCK-PATIENT IS REFUSING IVF AT THIS TIME. CALL LIGHT IN REACH. WILL CONT TO MONITOR.
[2020-10-01 08:24] VITALS: BP 136/82
--- NOTE | 2020-10-01 08:24 | NUR ---
PT SITTING IN BED. A&O X3. NO DISTRESS NOTED. PT DENIES ANY PAIN AT THIS TIME. IS DEVICE AT BEDSIDE, PT DEMONSTRATING PROPER USE OF DEVICE. ASSESSMENT COMPLETED. DISCUSSED POC. CALL LIGHT IN REACH. CONTINUE TO MONITOR.
[2020-10-01 10:40] VITALS: BP 127/82
[2020-10-01] MEDS ORDERED: MEDDOSEPAK PO (11:05)
[2020-10-01] MEDS ORDERED: AZITHROMYCIN500 MG PO (11:05)
--- NOTE | 2020-10-01 15:50 | NUR ---
Discharge instructions given. Patient verbalizes understanding of same. Discharged in stable condition via wheelchair to home with staff. All belongings sent with pt along with home medications and prescriptions. Home health agency to call pt and follow up with tomorrow.
== END 2020-10-01 15:50 | disposition home or self-care (01) ==
LOC: ED 10:10 → ED-I 12:36 → ED 13:13 → MS2 13:14 → ED-I 13:14 → MS2 17:03
PROVIDERS: Emergency Medicine; Nurse Practitioner Family; ADMIT Internal Medicine; ATTEND Internal Medicine
DX: J18.9 Pneumonia, unspecified organism (principal); J44.0 Chronic obstructive pulmonary disease with (acute) lower respiratory infection; I31.3 Pericardial effusion (noninflammatory); I13.0 Hypertensive heart and chronic kidney disease with heart failure and stage 1 through stage 4 chronic kidney disease, or unspecified chronic kidney disease; I50.9 Heart failure, unspecified; E11.22 Type 2 diabetes mellitus with diabetic chronic kidney disease; N18.9 Chronic kidney disease, unspecified; D64.9 Anemia, unspecified; I25.10 Atherosclerotic heart disease of native coronary artery without angina pectoris; I48.0 Paroxysmal atrial fibrillation; I42.9 Cardiomyopathy, unspecified; Z79.01 Long term (current) use of anticoagulants; Z79.84 Long term (current) use of oral hypoglycemic drugs; Z20.828 Contact with and (suspected) exposure to other viral communicable diseases
CPT/HCPCS: G0378; J1756

== ENCOUNTER 2021-07-28 18:40 | Emergency (ER) | payer SELFPAY ==
[~2021-07-28] VITALS: Ht 152.4 cm; Wt 96.8 kg
[~2021-07-28 18:40] MED LIST changes: +AZITHROMYCIN500 MG PO; +GLIPIZIDE5 MG PO; +K-TABS10 MEQ PO
[2021-07-28 19:46] LABS: HEMATOCRIT 45.2 % (37.0-47.0); HEMOGLOBIN 14.1 g/dl (12.0-16.0); IMMATURE GRANULOCYTES 0.5 % (0.0-5.0); MEAN CORPUSCULAR HGB 24.7 pG CALC (26.0-32.0); MEAN CORPUSCULAR HGB CONC 31.2 g/dL CAL (32.0-36.0); NEUT# 5.08 thou/uL (2.00-7.15); RED BLOOD COUNT 5.71 mill/uL (4.20-5.60); RED CELL DISTRI WIDTH 14.3 % (11.5-15.5)
[2021-07-28 19:48] LABS: MEAN CELL VOLUME 79.2 fL CALC (80.0-100.0)
[2021-07-28 20:01] LABS: ALBUMIN 4.2 g/dL (3.2-5.0); ALKALINE PHOSPHATASE 94 u/l (38-126); BUN 20 mg/dL (7-17); BUN/CREATININE RATIO 19 (12-20 (CALC)); CARBON DIOXIDE 22 mmol/l (22-30); CHLORIDE 101 mmol/l (95-108); CREATININE 1.1 mg/dL (0.5-1.0); GFR 51 ML/MIN (>=60 (CALC)); GFR FOR AFR.AMER. > 60 ML/MIN (>=60 (CALC)); SGOT/AST 33 u/l (14-36); SODIUM 134 mmol/l (137-146); TOTAL PROTEIN 8.2 g/dL (6.3-8.2)
[2021-07-28 20:02] LABS: ANION GAP 15 (6-22 (CALC)); BILIRUBIN, TOTAL 0.9 mg/dL (0.0-1.4); MAGNESIUM 1.4 mg/dL (1.6-2.3); POTASSIUM 4.1 mmol/l (3.5-5.1)
[2021-07-28 23:06] LABS: URINE BILIRUBIN - DIPSTICK NEGATIVE (NEGATIVE); URINE BLOOD DIPSTICK SMALL (NEGATIVE); URINE COLOR YELLOW; URINE GLUCOSE - DIPSTICK 500 mg/dL (NEGATIVE); URINE KETONE NEGATIVE (NEGATIVE); URINE PROTEIN - DIPSTICK 30 mg/dL (NEG-TRACE); URINE SPECIFIC GRAVITY 1.015; URINE UROBILINOGEN - DIPSTICK 0.2 E.U./dL (0.2)
[2021-07-28 23:07] LABS: URINE LEUK ESTERASE SMALL (NEGATIVE); URINE NITRITE - DIPSTICK NEGATIVE (Negative)
[2021-07-28 23:11] LABS: URINE BACTERIA FEW hpf; URINE SQUAMOUS EPITHELIAL CELL FEW EPI/hpf (0-FEW); URINE WBC 20-50 WBC/hpf (0-5)
[2021-07-28] MEDS ORDERED: BACTRIM DS1 TAB PO (23:19)
[2021-07-29 00:11] VITALS: BP 149/77
== END 2021-07-29 00:28 | disposition home or self-care (01) | DRG 864 ==
LOC: ED 18:40
PROVIDERS: Family Medicine
DX: R50.83 Postvaccination fever (principal); R51.9 Headache, unspecified; T50.B95A Adverse effect of other viral vaccines, initial encounter; N39.0 Urinary tract infection, site not specified; J45.909 Unspecified asthma, uncomplicated; I10 Essential (primary) hypertension; E11.9 Type 2 diabetes mellitus without complications; J44.9 Chronic obstructive pulmonary disease, unspecified; Z95.0 Presence of cardiac pacemaker; Z20.822 Contact with and (suspected) exposure to COVID-19

== ENCOUNTER 2021-11-20 14:32 | Emergency (ER) | payer OTHER ==
[~2021-11-20] VITALS: Ht 162.6 cm; Wt 100.0 kg
[~2021-11-20 14:32] MED LIST changes: +BACTRIM DS1 TAB PO
[2021-11-20 17:08] LABS: URINE BLOOD DIPSTICK MODERATE (NEGATIVE); URINE COLOR YELLOW; URINE GLUCOSE - DIPSTICK >=1000 mg/dL (NEGATIVE); URINE KETONE 15 mg/dL (NEGATIVE); URINE LEUK ESTERASE NEGATIVE (NEGATIVE); URINE PROTEIN - DIPSTICK 100 mg/dL (NEG-TRACE); URINE SPECIFIC GRAVITY 1.025; URINE UROBILINOGEN - DIPSTICK 0.2 E.U./dL (0.2)
[2021-11-20 17:11] LABS: URINE BILIRUBIN - DIPSTICK NEGATIVE (NEGATIVE); URINE NITRITE - DIPSTICK NEGATIVE (Negative)
[2021-11-20 17:14] LABS: HEMATOCRIT 44.2 % (37.0-47.0); HEMOGLOBIN 13.8 g/dl (12.0-16.0); IMMATURE GRANULOCYTES 0.4 % (0.0-5.0); MEAN CELL VOLUME 79.4 fL CALC (80.0-100.0); MEAN CORPUSCULAR HGB 24.8 pG CALC (26.0-32.0); MEAN CORPUSCULAR HGB CONC 31.2 g/dL CAL (32.0-36.0); NEUT# 4.36 thou/uL (2.00-7.15); RED BLOOD COUNT 5.57 mill/uL (4.20-5.60); RED CELL DISTRI WIDTH 14.1 % (11.5-15.5)
[2021-11-20 17:20] LABS: URINE SQUAMOUS EPITHELIAL CELL FEW EPI/hpf (0-FEW)
[2021-11-20 17:26] LABS: ALKALINE PHOSPHATASE 105 u/l (38-126); ANION GAP 14 (6-22 (CALC)); BUN 9 mg/dL (7-17); BUN/CREATININE RATIO 10 (12-20 (CALC)); CARBON DIOXIDE 22 mmol/l (22-30); CHLORIDE 103 mmol/l (95-108); GFR 57 ML/MIN (>=60 (CALC)); GFR FOR AFR.AMER. > 60 ML/MIN (>=60 (CALC)); LIPASE 291 u/l (23-300); POTASSIUM 4.2 mmol/l (3.5-5.1); SGOT/AST 24 u/l (14-36); SODIUM 135 mmol/l (137-146); TOTAL PROTEIN 8.3 g/dL (6.3-8.2)
[2021-11-20 17:27] LABS: BILIRUBIN, TOTAL 1.5 mg/dL (0.0-1.4)
[2021-11-20] MEDS ORDERED: VALACYCLOVIR HCL1 GM PO (18:41)
[2021-11-20] MEDS ORDERED: HYOSCYAMINE0.125 M3 PO (18:41)
[2021-11-20 19:11] VITALS: BP 150/87
== END 2021-11-20 19:11 | disposition home or self-care (01) ==
LOC: ED 14:32
PROVIDERS: Family Medicine
DX: R10.11 Right upper quadrant pain (principal); B02.9 Zoster without complications; R16.0 Hepatomegaly, not elsewhere classified; K76.0 Fatty (change of) liver, not elsewhere classified; R31.9 Hematuria, unspecified; E66.9 Obesity, unspecified; J45.909 Unspecified asthma, uncomplicated; I10 Essential (primary) hypertension; E11.9 Type 2 diabetes mellitus without complications; J44.9 Chronic obstructive pulmonary disease, unspecified; Z95.0 Presence of cardiac pacemaker; Z68.37 Body mass index [BMI] 37.0-37.9, adult

== ENCOUNTER 2021-11-24 15:39 | Emergency (ER) | payer OTHER ==
[~2021-11-24] VITALS: Ht 162.6 cm; Wt 91.0 kg
[~2021-11-24 15:39] MED LIST changes: +HYOSCYAMINE0.125 M3 PO; +VALACYCLOVIR HCL1 GM PO
[2021-11-24 16:35] LABS: HEMATOCRIT 44.9 % (37.0-47.0); HEMOGLOBIN 13.6 g/dl (12.0-16.0); IMMATURE GRANULOCYTES 0.4 % (0.0-5.0); MEAN CELL VOLUME 79.5 fL CALC (80.0-100.0); MEAN CORPUSCULAR HGB 24.1 pG CALC (26.0-32.0); MEAN CORPUSCULAR HGB CONC 30.3 g/dL CAL (32.0-36.0); NEUT# 4.22 thou/uL (2.00-7.15); RED BLOOD COUNT 5.65 mill/uL (4.20-5.60); RED CELL DISTRI WIDTH 14.2 % (11.5-15.5)
[2021-11-24 16:56] LABS: ALKALINE PHOSPHATASE 112 u/l (38-126); ANION GAP 14 (6-22 (CALC)); BILIRUBIN, TOTAL 1.1 mg/dL (0.0-1.4); BUN 7 mg/dL (7-17); BUN/CREATININE RATIO 8 (12-20 (CALC)); CARBON DIOXIDE 23 mmol/l (22-30); CHLORIDE 102 mmol/l (95-108); CREATININE 0.9 mg/dL (0.5-1.0); GFR > 60 ML/MIN (>=60 (CALC)); GFR FOR AFR.AMER. > 60 ML/MIN (>=60 (CALC)); LIPASE 283 u/l (23-300); SGOT/AST 19 u/l (14-36); SODIUM 136 mmol/l (137-146); TOTAL PROTEIN 8.2 g/dL (6.3-8.2)
[2021-11-24 16:57] LABS: POTASSIUM 3.1 mmol/l (3.5-5.1)
[2021-11-25 00:52] LABS: URINE BILIRUBIN - DIPSTICK NEGATIVE (NEGATIVE); URINE BLOOD DIPSTICK MODERATE (NEGATIVE); URINE COLOR YELLOW; URINE GLUCOSE - DIPSTICK 100 mg/dL (NEGATIVE); URINE KETONE NEGATIVE (NEGATIVE); URINE LEUK ESTERASE NEGATIVE (NEGATIVE); URINE PROTEIN - DIPSTICK 100 mg/dL (NEG-TRACE); URINE UROBILINOGEN - DIPSTICK 0.2 E.U./dL (0.2)
[2021-11-25 01:03] LABS: URINE NITRITE - DIPSTICK NEGATIVE (Negative)
[2021-11-25 01:16] LABS: URINE BACTERIA FEW hpf; URINE EPITHELIAL CELLS FEW EPI/hpf (0-FEW)
[2021-11-25 09:07] VITALS: BP 161/77
== END 2021-11-25 09:09 | disposition home or self-care (01) ==
LOC: ED 15:39
PROVIDERS: Family Medicine
DX: R07.9 Chest pain, unspecified (principal); R10.31 Right lower quadrant pain; R10.32 Left lower quadrant pain; G89.29 Other chronic pain; R80.9 Proteinuria, unspecified; R31.9 Hematuria, unspecified; I10 Essential (primary) hypertension; E11.9 Type 2 diabetes mellitus without complications; J44.9 Chronic obstructive pulmonary disease, unspecified; E66.9 Obesity, unspecified; Z95.0 Presence of cardiac pacemaker
CPT/HCPCS: Q9967